=== PATIENT | female | born 1990 | race Caucasian/White ===

== ENCOUNTER 2020-03-09 22:09 | Emergency (ER) | payer MEDICAID, SELFPAY ==
[2020-03-09 22:30] VITALS: BP 150/71; PULSE 97; RESP 18; TEMP 37; O2SAT 98; BMI 39.6
--- NOTE | 2020-03-10 00:31 | ECG_ITS ---
[facility] Test Date: 2020-03-09 Pat Name: Jennifer Vallejo Department: Room: Gender: Female Accounting Director: : 1990 Requested By: Ozzie Day Order Number: [id number] Charissa MD: Charly Villarreal M.D. Measurements Intervals Shannon Rate: 79 P: 51 MA: 170 QRS: 81 QRSD: 91 T: 40 QT: 352 QTc: 405 Interpretive Statements SINUS RHYTHM WITH SINUS ARRHYTHMIA No previous ECG available for comparison Electronically Signed On 03-10-2020 13:51:43 CDT by Charly Villarreal M.D. [id number]
--- NOTE | 2020-03-10 00:31 | XRR_ITS ---
PROCEDURE INFORMATION: Exam: XR Chest, 1 View Exam date and time: 03/10/2020 1:04 AM Age: 30 years old Clinical indication: Chest pain; Type not specified; Additional info: Cp TECHNIQUE: Imaging protocol: XR of the chest Views: 1 view. COMPARISON: No relevant prior studies available. FINDINGS: Lungs: The lungs are clear. Pleural space: Unremarkable. No pleural effusion. No pneumothorax. Heart/Mediastinum: Unremarkable. No cardiomegaly. Bones/joints: Unremarkable. XR/XR chest 1V portable [id number] IMPRESSION: Normal study.
--- NOTE | 2020-03-10 01:03 | W.ED.CHESTPA ---
HPI - Chest Pain General: Chief Complaint: Chest Pain Stated Complaint: cp Time Seen by Provider: 03/10/20 01:03 Source: patient Mode of arrival: ambulatory Limitations: no limitations Review of Systems General: Reports: 10 or more systems reviewed and unremarkable except in HPI and below Physical Exam Const: COMMON NORMALS: no acute distress and patient oriented x3 GENERAL APPEARANCE: cooperative HENMT: COMMON NORMALS: normocephalic, TM's normal bilaterally and Normal external nose present HEAD & SCALP: normal to inspection and normocephalic NOSE: Normal external nose present TYMPANIC MEMBRANE: TM's normal bilaterally MOUTH: Normal oral and palatal mucosa present THROAT: posterior oropharynx normal Eye: GENERAL EYE: appearance normal, both eyes and all related structures Neck/C-Spine: COMMON NORMALS: full ROM Lymph: LYMPHATIC: no lymphadenopathy noted Chest: COMMONS NORMALS: normal inspection of the chest Resp: COMMON NORMALS: normal respiratory effort EFFORT & INSPECTION: Yes able to speak in complete sentences Cardio: COMMON NORMALS: regular rate and regular rhythm RATE: regular rate RHYTHM: regular rhythm GI: COMMON NORMALS: non-tender : COMMON NORMALS: Yes no CVA tenderness BLADDER/KIDNEY EXAM: Yes no CVA tenderness Back/Pelvis: COMMON NORMALS: no CVA tenderness and thoracic and lumbar spine normal to inspection Extremity: COMMON NORMALS: normal to inspection Neuro: COMMON NORMALS: patient oriented x3 and moves all extremities Psych: COMMON NORMALS: mental status grossly normal and cooperative Skin: COMMON NORMALS: no rashes or lesions noted GENERAL SKIN EXAM: no rashes or lesions noted Course Vital Signs: Vital signs: Vital Signs Temperature 98.6 F 03/09/20 22:30 Pulse Rate 76 03/10/20 01:30 Respiratory Rate 16 03/10/20 01:30 Blood Pressure 113/71 03/10/20 01:30 Pulse Oximetry 99 03/10/20 01:30 MDM - Chest Pain MDM Narrative: Medical decision making narrative: Patient comes in today for complaints of mid chest pain with radiation into the left arm. Patient states that for last 2 months she has had problems for chest pain. Patient appears well. Vital signs are normal. Differential diagnosis includes ACS, PE, anxiety, GERD, gallbladder colic. Laboratory values were normal. EKG was normal. D-dimer and troponin were both negative. Reviewed exam with patient recommended follow-up with primary care for further evaluation and treatment. Patient reported understanding agreed to plan. Lab Data: Labs: Lab Results 03/10/20 03/10/20 03/10/20 Range/Units 01:03 01:26 01:26 WBC 10.5 H (4.0-10.0) 10^3/ uL RBC 4.50 (4.1-5.3) 10^6/u L Hgb 13.8 (11.5-15.3) g/dL Hct 41.4 (37.0-47.0) % MCV 92.0 (81-99) fL MCH 30.7 (28.0-34.0) pg MCHC 33.3 (30.0-36.0) g/dL RDW 11.9 L (12.1-15.1) % Plt Count 249 (130-400) 10^3/c mm MPV 11.0 H (7.4-10.4) fL Neut % (Auto) 55.1 % Lymph % (Auto) 36.5 % [place] % (Auto) 6.7 % Eos % (Auto) 1.0 % Baso % (Auto) 0.5 % Neut # (Auto) 5.8 (1.8-7.7) 10^3/u L Lymph # (Auto) 3.8 (0.8-4.8) 10^3/u L [place] # (Auto) 0.7 (0.2-0.9) 10^3/u L Eos # (Auto) 0.1 (0.0-0.8) 10^3/u L Baso # (Auto) 0.1 (0.0-0.1) 10^3/u L Nucleated RBC % (a uto) 0 % Nucleated RBCs # 0.0 /100WBC D-Dimer <= 0.27 (0-0.59) ug/mIFE U Sodium (136-145) mmol/L Potassium (3.5-5.1) mmol/L Chloride (98-107) mmol/L Carbon Dioxide (22-29) mmol/L Anion Gap (5-19) BUN (6-20) mg/dL Creatinine (0.5-0.9) mg/dL GFR Calculation (90-130) mL/min Glucose (65-115) mg/dL Calculated Osmolal ity (285-295) mOsm/k g Calcium (8.5-10.5) mg/dL Total Bilirubin (0.15-1.2) mg/dL AST (0-32) U/L ALT (0-33) U/L Alkaline Phosphata se (35-105) IU/L Troponin T Baselin e (0-10) ng/L Total Protein (6.6-8.7) g/dL Albumin (3.5-5.2) g/dL Globulin (1.3-4.6) g/dL HCG, Qual (Negative) Urine Color Yellow (Yellow) Urine Appearance Hazy A (CLEAR) Urine pH 5 (5-7) Ur Specific Gravit y 1.025 (1.005-1.030) Urine Protein Neg (Negative) Urine Glucose (UA) Norm (Normal) Urine Ketones Negative (Negative) Urine Blood Neg (Negative) Urine Nitrate Negative (Negative) Urine Bilirubin Neg (NEGATIVE) Urine Urobilinogen Norm (Negative) mg/dL Ur Leukocyte Patti ase Negative (Negative) Urine RBC 0-4 H (0-2) /hpf Urine WBC None (0-5) /hpf Ur Squamous Epith Cells 10-15 H (0-5) Amorphous Sediment Not Reportable Urine Bacteria Trace (NONE) 03/10/20 03/10/20 03/10/20 Range/Units 01:26 01:26 01:26 WBC (4.0-10.0) 10^3/ uL RBC (4.1-5.3) 10^6/u L Hgb (11.5-15.3) g/dL Hct (37.0-47.0) % MCV (81-99) fL MCH (28.0-34.0) pg MCHC (30.0-36.0) g/dL RDW (12.1-15.1) % Plt Count (130-400) 10^3/c mm MPV (7.4-10.4) fL Neut % (Auto) % Lymph % (Auto) % [place] % (Auto) % Eos % (Auto) % Baso % (Auto) % Neut # (Auto) (1.8-7.7) 10^3/u L Lymph # (Auto) (0.8-4.8) 10^3/u L [place] # (Auto) (0.2-0.9) 10^3/u L Eos # (Auto) (0.0-0.8) 10^3/u L Baso # (Auto) (0.0-0.1) 10^3/u L Nucleated RBC % (a uto) % Nucleated RBCs # /100WBC D-Dimer (0-0.59) ug/mIFE U Sodium 139 (136-145) mmol/L Potassium 4.1 (3.5-5.1) mmol/L Chloride 102 (98-107) mmol/L Carbon Dioxide 25 (22-29) mmol/L Anion Gap 16.1 (5-19) BUN 17 (6-20) mg/dL Creatinine 0.5 (0.5-0.9) mg/dL GFR Calculation 144.9 H (90-130) mL/min Glucose 98 (65-115) mg/dL Calculated Osmolal ity 284 L (285-295) mOsm/k g Calcium 9.5 (8.5-10.5) mg/dL Total Bilirubin 0.3 (0.15-1.2) mg/dL AST 15 (0-32) U/L ALT 17 (0-33) U/L Alkaline Phosphata se 74 (35-105) IU/L Troponin T Baselin e 6 (0-10) ng/L Total Protein 7.5 (6.6-8.7) g/dL Albumin 4.5 (3.5-5.2) g/dL Globulin 3.0 (1.3-4.6) g/dL HCG, Qual Negative (Negative) Urine Color (Yellow) Urine Appearance (CLEAR) Urine pH (5-7) Ur Specific Gravit y (1.005-1.030) Urine Protein (Negative) Urine Glucose (UA) (Normal) Urine Ketones (Negative) Urine Blood (Negative) Urine Nitrate (Negative) Urine Bilirubin (NEGATIVE) Urine Urobilinogen (Negative) mg/dL Ur Leukocyte Patti ase (Negative) Urine RBC (0-2) /hpf Urine WBC (0-5) /hpf Ur Squamous Epith Cells (0-5) Amorphous Sediment Urine Bacteria (NONE) Discharge Plan Discharge Patient Disposition: Home, Self-Care Clinical Impression: Atypical chest pain Condition: Stable Referrals: Shay Alejandro MD [Primary Care Provider] - Discharge Diet: Usual diet Discharge Activity: Resume usual activity Patient Instructions: Gastroesophageal Reflux Disease (ED) Activity Restrictions/Additional Instructions: Home and rest. Drink plenty of fluids with medications. Activity as tolerated. Follow-up with primary care in one 1 week. Return to the ER for worsening symptoms or new concerns. Coding Level of Care Code ED Baggage Inspector for Niko Fwd Exam Comprehensive
[2020-03-10 01:30] VITALS: BP 113/71; PULSE 76; RESP 16; O2SAT 99
[2020-03-10 01:36] LABS: Basophils # 0.1 10^3/uL (0.0-0.1); Basophils % 0.5 %; Eosinophils # 0.1 10^3/uL (0.0-0.8); Hematocrit 41.4 % (37.0-47.0); Hemoglobin 13.8 g/dL (11.5-15.3); Lymphocytes # 3.8 10^3/uL (0.8-4.8); Lymphocytes % 36.5 %; Mean Corpuscular HGB Conc 33.3 g/dL (30.0-36.0); Mean Corpuscular Hemoglobin 30.7 pg (28.0-34.0); Monocytes # 0.7 10^3/uL (0.2-0.9); Monocytes % 6.7 %; Neutrophils # 5.8 10^3/uL (1.8-7.7); Neutrophils % 55.1 %; Nucleated Red Blood Cells % 0 %; Platelet Count 249 10^3/cmm (130-400); Red Cell Distribution Width 11.9 % (12.1-15.1); White Blood Count 10.5 10^3/uL (4.0-10.0)
[2020-03-10 01:44] LABS: D Dimer <= 0.27 ug/mIFEU (0-0.59)
[2020-03-10 01:49] LABS: Add Urine Microscopic? YES; Bilirubin Urine Neg (NEGATIVE); Blood Urine Neg (Negative); Glucose Urine UA Norm (Normal); Ketones Urine Negative (Negative); Leukocyte Esterase Urine Negative (Negative); Nitrate Urine Negative (Negative); Protein Urine Neg (Negative); Specific Gravity, Urine 1.025 (1.005-1.030); Urine Appearance Hazy (CLEAR); Urine Color Yellow (Yellow); Urobilinogen Urine Norm (Negative); pH Urine 5 (5-7)
[2020-03-10 01:49] LABS: Alanine Aminotransferase 17 U/L (0-33); Albumin Level 4.5 g/dL (3.5-5.2); Alkaline Phosphatase 74 IU/L (35-105); Anion Gap 16.1 (5-19); Aspartate Amino Transferase 15 U/L (0-32); Blood Urea Nitrogen 17 mg/dL (6-20); Calcium 9.5 mg/dL (8.5-10.5); Carbon Dioxide 25 mmol/L (22-29); Chloride 102 mmol/L (98-107); Glomerular Filtration Rate 144.9 mL/min (90-130); Glucose 98 mg/dL (65-115); Osmolality Calculated 284 mOsm/kg (285-295); Potassium 4.1 mmol/L (3.5-5.1); Sodium 139 mmol/L (136-145); Total Bilirubin 0.3 mg/dL (0.15-1.2); Total Protein 7.5 g/dL (6.6-8.7)
[2020-03-10 01:50] LABS: HCG, Serum Qual Negative (Negative)
[2020-03-10 01:53] LABS: Troponin(5th) Baseline 6 ng/L (0-10)
[2020-03-10 01:55] LABS: Add Urine Culture? No; Bacteria Urine TRACE; RBC Urine 0-4 /hpf (0-2)
[2020-03-10] MEDS: lidocaine 2% viscous 15 ML, aluminum-mag hydrox-simethicon 30 ML, sucralfate oral liq 1 GM PO (02:10)
[2020-03-10 02:38] VITALS: PULSE 74; RESP 18; O2SAT 99
== END 2020-03-10 02:39 | disposition home or self-care (01) ==
PROVIDERS: Emergency Medicine; Emergency Provider Nurse Practitioner Family; PCP Family Medicine
DX: R07.9 Chest pain, unspecified (principal)
CPT/HCPCS: 12345; 71045; 80053; 81001; 81003; 84484; 84703; 85025; 85378; 93005; 99283; 99284

== ENCOUNTER 2020-08-24 13:21 | Emergency (ER) | payer MEDICAID, SELFPAY ==
[2020-08-24 13:47] VITALS: BP 128/79; PULSE 79; RESP 18; TEMP 37.1; O2SAT 98; BMI 38.4
--- NOTE | 2020-08-24 14:12 | W.ED.EXTPRO ---
HPI - Extremity Problem General: Chief complaint: Extremity Problem,Nontraumatic Stated complaint: Rt arm pain Time Seen by Provider: 08/24/20 14:05 History of Present Illness: HPI Narrative: Patient is a 30-year-old female comes to the ED with right wrist hand and pain. Patient denies any injury but does have a history of carpal tunnel on right wrist. Patient says last 2 days she has had increased pain and numbness in fingers and right hand. She says the pain shoots up from the hand into the elbow. Pain is rated a 7 out of 10. Patient says she is currently not and has had her tubes tied. Associated symptoms: Deny chest pain, fever(s) or rash Review of Systems Const: Denies: fever(s), chills or fatigue Eyes: Denies: change in vision or eye discomfort ENMT: Denies: throat pain, odynophagia, nasal discharge or nasal congestion Card: Denies: chest pain, palpitations, edema, swelling of feet/ankles, dyspnea on exertion or orthopnea Resp: Denies: dyspnea, productive cough or non-productive cough GI: Denies: abdominal pain, nausea, vomiting, diarrhea, constipation or hematochezia : Denies: flank pain, dysuria or hematuria Musc: Reports: extremity pain (Right wrist); Denies: neck pain, back pain or extremity swelling Skin/Breast: Denies: rash or new lesions Neuro: Denies: headache(s), numbness in extremities or weakness in extremities Physical Exam Const: COMMON NORMALS: no acute distress and patient oriented x3 GENERAL APPEARANCE: cooperative and comfortable HENMT: COMMON NORMALS: normocephalic HEAD & SCALP: normocephalic MOUTH: Normal oral and palatal mucosa present THROAT: posterior oropharynx normal and uvula midline Neck/C-Spine: COMMON NORMALS: supple GENERAL: Yes normal visual inspection Resp: COMMON NORMALS: normal respiratory effort, No retractions, No use of accessory muscles and clear to auscultation bilaterally AUSCULTATION: clear to auscultation bilaterally Cardio: COMMON NORMALS: regular rate, regular rhythm, S1 normal heart sound present, S2 normal heart sound present, No gallops present (Cardio), No clicks present (Cardio), No murmurs present (Cardio) and Peripheral pulses 2+ throughout RATE: regular rate RHYTHM: regular rhythm HEART SOUNDS: S1 normal heart sound present and S2 normal heart sound present PERIPHERAL PULSES: Peripheral pulses 2+ throughout GI: COMMON NORMALS: Normal to inspection, nondistended, normoactive bowel sounds present, Soft to palpation, non-tender and no masses PALPATION: Yes Soft to palpation : COMMON NORMALS: Yes no CVA tenderness BLADDER/KIDNEY EXAM: Yes no CVA tenderness Back/Pelvis: COMMON NORMALS: no CVA tenderness Extremity: RIGHT UPPER EXTREMITY: Yes wrist Right wrist: Yes inspection (Mild swelling in right hand.), Yes ROM (Full range of motion), Yes neurovascular exam (Intact) and Yes special tests Right wrist special tests: Tinel's test: Positive and Phalen's test: Positive Neuro: COMMON NORMALS: patient oriented x3 and moves all extremities Skin: GENERAL SKIN EXAM: dry skin Course Vital Signs: Vital signs: Vital Signs Temperature 98.7 F 08/24/20 13:47 Pulse Rate 79 08/24/20 13:47 Respiratory Rate 18 08/24/20 13:47 Blood Pressure 128/79 08/24/20 13:47 Pulse Oximetry 98 08/24/20 13:47 MDM - Extremity (Nontraumatic) MDM Narrative: Medical decision making narrative: Patient is a 30-year-old female comes to the ED with right wrist pain. She has a history of carpal tunnel in her right wrist. Denies any injury or trauma to cause pain. She says that the pain shoots into the hand and up into the elbow. Physical exam showed a positive Phalen's and Tinel's test. Patient will be continued a dose of Toradol and Solu-Medrol while here in the ED. She was then discharged on some ibuprofen and Medrol Dosepak. Follow-up with PCP in 7 to 10 days. Return to ED precautions given. Patient understood and agreed with plan. Discharge Plan Discharge Patient Disposition: Home Clinical Impression: Carpal tunnel syndrome of right wrist Condition: Stable Prescriptions: New ibuprofen 800 mg tablet 800 mg PO Q8H PRN (Reason: pain) Qty: 30 RF: 0 Medrol (Manny) 4 mg tablets,dose pack See Rx Instructions .ROUTE .COMPLEX Qty: 21 RF: 0 Discharge Orders: Discharge ED (Routine); Ordered 08/24/20 Ordered By: Shay Colby Referrals: Shay Alejandro MD [Primary Care Provider] - Discharge Diet: Regular Discharge Activity: Limit activity as instructed Patient Instructions: Carpal Tunnel Syndrome Exercises (GEN), Carpal Tunnel Syndrome (ED) Activity Restrictions/Additional Instructions: Follow-up with medical provider as directed. Case management should be contacting you in the next several days set up an appoint with the PCP. Rest and ice right breast. Take medications as prescribed. Return to the ER or your medical provider if condition worsens. Please read and understand discharge instructions. If any questions, please ask. Coding Level of Care Code ED Gas Well Drilling Manager for Chg Fwd Exam Comprehensive
[2020-08-24] MEDS: ketorolac 60 mg/2 mL INJ IM (14:23)
--- NOTE | 2020-08-27 10:46 | DCPLANNER ---
wireless development manager had message to speak with patient about getting established with a primary care physician. wireless development manager called [phone] several times, unable to speak with patient at this time, phone number was a busy signal, unable to leave a voicemail for patient.
== END 2020-08-24 14:28 | disposition home or self-care (01) ==
PROVIDERS: Emergency Provider Physician Assistant; PCP Family Medicine
DX: G56.01 Carpal tunnel syndrome, right upper limb (principal)
CPT/HCPCS: 12345; 96372; 99281; 99283; J1885; J2930

== ENCOUNTER 2020-10-10 09:22 | Emergency (ER) | payer BC, MEDICAID, SELFPAY ==
[2020-10-10 09:43] VITALS: BMI 48.4
--- NOTE | 2020-10-10 09:46 | XR_ITS ---
WS: [id number] Right foot, 3 views, 10/10/2020 Clinical Data: pain Comparison: None. Findings: There is an oblique fracture of the right fifth proximal phalanx of the foot. No other fractures or d islocations are seen. The soft tissues are normal. The tarsals and metatarsals are unremarkable. XR/XR foot RT min 3V* [id number] Impression: Fracture of right fifth proximal phalanx of the foot.
[2020-10-10 09:48] VITALS: BP 139/73; PULSE 111; RESP 14; TEMP 36.8; O2SAT 98
--- NOTE | 2020-10-10 09:51 | W.ED.LOWEXIN ---
HPI - Extremity Injury (Lower) General: Chief Complaint: Trauma Stated Complaint: Rt foot pain Time Seen by Provider: 10/10/20 09:46 Source: patient Mode of arrival: ambulatory Limitations: no limitations History of Present Illness: HPI Narrative: Patient is a 30-year-old female who presents to ED today for evaluation of a right foot injury. Patient tells me yesterday she was trying to get a lawn chair out from underneath the couch when the lawn chair got hung up on her right fifth toe. She complains of pain at rest but more so with ambulation. She is ambulatory without assistance here. No lacerations. complaint: foot injury Onset (ago): day(s) (yesterday) Place: home Severity: moderate Relieving factors: nothing Exacerbating factors: weight bearing, movement and palpation Other symptoms: none Review of Systems Musc: Reports: extremity pain (R foot/5th toe pain) and extremity swelling Skin/Breast: Reports: other (no lacerations/abrasions) Neuro: Denies: numbness in extremities, sensory changes or difficulty walking Physical Exam Const: COMMON NORMALS: no acute distress, average body habitus, patient oriented x3, no limitations, healthy appearing, alert and well nourished Extremity: GENERAL: Yes normal exam except as noted OTHER: TTP throughout 5th digit and distal metatarsal; mild swelling and ecchymosis noted; no breaks in skin; no deformities noted; sensory intact; normal cap refill and DP/PT pulses Neuro: COMMON NORMALS: patient oriented x3, moves all extremities, no focal motor deficits, no sensory deficits noted and gait normal SENSORIUM/ORIENTATION: Yes alert Skin: COMMON NORMALS: no rashes or lesions noted GENERAL SKIN EXAM: no rashes or lesions noted Course Vital Signs: Vital signs: Vital Signs Temperature 98.3 F 10/10/20 09:48 Pulse Rate 118 H 10/10/20 10:40 Respiratory Rate 16 10/10/20 10:40 Blood Pressure 133/82 10/10/20 10:40 Pulse Oximetry 97 10/10/20 10:40 MDM - Extremity Injury (Lower) MDM Narrative: Medical decision making narrative: Pt with fx of R 5th proximal phalanx. Will place in hard soled shoe and have her follow up with podiatry. Imaging Data^: XR R foot: Radiologist's impression: [address] [address] XRay Report Signed Patient: Jennifer Vallejo Unit #: [id number] : 1990 Age/Sex: 30 / F ADM Date: 10/10/20 Loc: ER Room/Bed: Attending Dr: Ordering Provider/Ordering MD: Samra Stone Date of Service: 10/10/20 Procedure(s): XR foot RT min 3V* 55085 Accession Number(s): [id number] Report Number: [id number] WS: [id number] Right foot, 3 views, 10/10/2020 Clinical Data: pain Comparison: None. Findings: There is an oblique fracture of the right fifth proximal phalanx of the foot. No other fractures or dislocations are seen. The soft tissues are normal. The tarsals and metatarsals are unremarkable. XR/XR foot RT min 3V* [id number] Impression: Fracture of right fifth proximal phalanx of the foot. Dictated By: Jacque Guillory MD Signed By: Jacque Guillory MD Signed Date/Time: 10/10/20 1029 DD/ 1027 Discharge Plan Discharge Patient Disposition: Home Clinical Impression: Closed fracture of fifth toe of right foot Qualifiers: Encounter type: initial encounter Qualified Code(s): S92.501A - Displaced unspecified fracture of right lesser toe(s), initial encounter for closed fracture Condition: Stable Discharge Orders: Discharge ED (Routine); Ordered 10/10/20 Ordered By: Samra Stone Referrals: Pedro Luis Carroll DPM [Physician] - Shay Alejandro MD [Primary Care Provider] - Patient Instructions: Toe Fracture (ED) Activity Restrictions/Additional Instructions: As discussed to stay in your hard soled surgical shoe as much as possible. If you have to wear alternative footwear-make sure it also has a hard sole. Case management should contact you shortly to set you up with your podiatry appointment. Coding Level of Care Code ED Auto Care Center Manager for Chg Fwd Exam Expanded Problem Focused
[2020-10-10 10:40] VITALS: BP 133/82; PULSE 118; RESP 16; O2SAT 97
--- NOTE | 2020-10-10 12:17 | DCPLANNER ---
store sales manager had message to schedule a follow up appointment for patient with ortho. store sales manager called the ortho clinic, spoke with Denice, gave clinic patients information. store sales manager was told that patients information would be printed and reviewed. Clinic will call patient with appointment information.
--- NOTE | 2020-10-17 10:46 | DCPLANNER ---
water project manager called the ortho clinic, spoke with Denice, to confirm that a follow up appointment had been scheduled for patient. water project manager was told that the clinic had tried to call patient, unable to reach patient and unable to leave a voicemail.
== END 2020-10-10 10:42 | disposition home or self-care (01) ==
PROVIDERS: Emergency Provider Physician Assistant; PCP Family Medicine
DX: S92.501A Displaced unspecified fracture of right lesser toe(s), initial encounter for closed fracture (principal); W22.8XXA Striking against or struck by other objects, initial encounter
CPT/HCPCS: 12345; 73630; 99282

== ENCOUNTER 2020-12-22 14:30 | Emergency (ER) | payer BC, MEDICAID, SELFPAY ==
[2020-12-22 14:51] VITALS: BP 145/71; PULSE 92; RESP 18; TEMP 36.9; O2SAT 96; BMI 34.2
[2020-12-22 14:58] VITALS: BP 118/66; PULSE 92; RESP 18; O2SAT 96
[2020-12-22 15:01] VITALS: PULSE 56
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
[2020-12-22] MEDS: ketorolac 30 mg/mL INJ 60 MG IM (15:34)
[2020-12-22 15:44] VITALS: BP 118/66; PULSE 82; RESP 17; O2SAT 97
== END 2020-12-22 15:44 | disposition home or self-care (01) ==
PROVIDERS: Emergency Provider Family Medicine
DX: S83.91XA Sprain of unspecified site of right knee, initial encounter (principal); S09.8XXA Other specified injuries of head, initial encounter; V00.148A Other scooter (nonmotorized) accident, initial encounter
CPT/HCPCS: 70450; 73562; 96372; 99283; J1885

== ENCOUNTER 2021-04-04 21:54 | Emergency (ER) | payer BC, MEDICAID, SELFPAY ==
--- NOTE | 2021-04-04 21:57 | XRR_ITS ---
PROCEDURE INFORMATION: Exam: XR Chest Exam date and time: 04/04/2021 9:57 PM Age: 31 years old Clinical indication: Pain; Left-sided; Patient HX: Left sided cp radiating down left arm/numb fingers TECHNIQUE: Imaging protocol: XR of the chest. Views: 1 view. COMPARISON: 1. CR XR chest 1V portable [id number] 2020-03-10 00:[address] abdomen pelvis w con* [id number] 2018-10-05 18:19 FINDINGS: Lungs: Unremarkable. No consolidation. Pleural spaces: Unremarkable. No pleural effusion. No pneumothorax. Heart/Mediastinum: Unremarkable. No cardiomegaly. Bones/joints: Unremarkable. XR/XR chest 1V portable [id number] IMPRESSION: No acute findings.
--- NOTE | 2021-04-04 21:58 | ECG_ITS ---
[facility] Test Date: 2021-04-04 Pat Name: Jennifer Vallejo Department: Room: Gender: Female [employer]: : 1990 Requested By: Shay Colby Order Number: [id number] Charissa MD: JE SPENCER Measurements Intervals [place] Rate: 90 P: 60 LA: 155 QRS: 72 QRSD: 96 T: 40 QT: 338 QTc: 414 Interpretive Statements SINUS RHYTHM Compared to ECG 03/09/2020 22:30:01 Sinus arrhythmia no longer present Electronically Signed On 04-06-2021 20:30:07 CDT by JE SPENCER [email or web address]
[2021-04-04 22:04] VITALS: BP 127/77; PULSE 102; RESP 18; TEMP 36.4; O2SAT 98; BMI 38.4
[2021-04-04 22:15] VITALS: PULSE 81; RESP 18; O2SAT 99
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
--- NOTE | 2021-04-04 22:18 | CTR_ITS ---
PROCEDURE INFORMATION: Exam: CT Head Without Contrast Exam date and time: 04/04/2021 10:18 PM Age: 31 years old Clinical indication: Syncope and collapse; Additional info: Syncopal episode TECHNIQUE: Imaging protocol: Computed tomography of the head without contrast. Radiation optimization: All CT scans at this facility use at least one of these dose optimization techniques: automated exposure control; mA and/or kV adjustment per patient size (includes targeted exams where dose is matched to clinical indication); or iterative reconstruction. COMPARISON: CT head wo con* [id number] 2020-12-22 15:36 RADIATION DOSE METRICS: Total DLP (mGy-cm): 848.27 FINDINGS: Brain: 4 mm cerebellar ectopia. No midline shift, mass, fluid collection, or evidence of acute hemorrhage. Cerebral ventricles: No ventriculomegaly. Paranasal sinuses: Visualized sinuses are unremarkable. No fluid levels. Mastoid air cells: Visualized mastoid air cells are well aerated. Bones/joints: Unremarkable. No acute fracture. Soft tissues: Unremarkable. CT/CT head wo con* [id number] IMPRESSION: No acute intracranial abnormality. Radiation Dose CTDIVOL = (mGy): DLP = 848.27 (mGy-cm)
[2021-04-04 22:45] LABS: Basophils # 0.1 10^3/uL (0.0-0.1); Basophils % 0.4 %; Eosinophils # 0.2 10^3/uL (0.0-0.8); Eosinophils % 1.2 %; Hematocrit 42.3 % (37.0-47.0); Hemoglobin 13.9 g/dL (11.5-15.3); Lymphocytes # 2.2 10^3/uL (0.8-4.8); Lymphocytes % 16.4 %; Mean Corpuscular HGB Conc 32.9 g/dL (30.0-36.0); Mean Corpuscular Hemoglobin 30.5 pg (28.0-34.0); Mean Platelet Volume 10.6 fL (7.4-10.4); Monocytes # 0.9 10^3/uL (0.2-0.9); Monocytes % 6.5 %; Neutrophils # 10.03 10^3/uL (1.8-7.7); Neutrophils % 75.1 %; Nucleated Red Blood Cells % 0 %; Platelet Count 237 10^3/cmm (130-400); Red Blood Count 4.55 10^6/uL (4.1-5.3); Red Cell Distribution Width 12.1 % (12.1-15.1); White Blood Count 13.4 10^3/uL (4.0-10.0)
[2021-04-04] MEDS: LORazepam 2 mg/mL INJ 1 mL 1 MG IVP (22:46)
[2021-04-04 22:54] LABS: HCG, Serum Qual Negative (Negative)
[2021-04-04 23:01] LABS: Troponin(5th) Baseline 6 ng/L (0-10)
[2021-04-04 23:03] LABS: Alanine Aminotransferase 12 U/L (0-33); Albumin Level 4.1 g/dL (3.5-5.2); Alkaline Phosphatase 83 IU/L (35-105); Anion Gap 13.3 (5-19); Aspartate Amino Transferase 11 U/L (0-32); Blood Urea Nitrogen 14 mg/dL (6-20); Calcium 8.4 mg/dL (8.5-10.5); Carbon Dioxide 24 mmol/L (22-29); Chloride 105 mmol/L (98-107); Globulin 1.9 g/dL (1.3-4.6); Glucose 96 mg/dL (65-115); Osmolality Calculated 286 mOsm/kg (285-295); Potassium 4.3 mmol/L (3.5-5.1); Sodium 138 mmol/L (136-145); Total Bilirubin 0.3 mg/dL (0.15-1.2)
[2021-04-05] MEDS: sodium chloride 0.9% 1,000 ML 999 ML IV (00:30)
[2021-04-05 01:49] VITALS: BP 138/75; PULSE 78; RESP 16; TEMP 36.9; O2SAT 98
== END 2021-04-05 01:51 | disposition home or self-care (01) ==
PROVIDERS: Emergency Provider Physician Assistant
DX: R07.89 Other chest pain (principal); F41.9 Anxiety disorder, unspecified
CPT/HCPCS: 70450; 71045; 80053; 84484; 84703; 85025; 93005; 96361; 96374; 99284; J2060; J7030

== ENCOUNTER 2021-07-27 09:12 | Emergency (ER) | payer BC, MEDICAID, SELFPAY ==
[2021-07-27 10:05] VITALS: BP 125/91; PULSE 119; RESP 17; TEMP 36.3; O2SAT 97; BMI 42.0
--- NOTE | 2021-07-27 10:20 | ED_ITS ---
HPI - Ear Problem General: Chief complaint: Ear Stated complaint: Ear Pain Time Seen by Provider: 07/27/21 09:57 History of Present Illness: HPI Narrative: Bilateral ear pain for the last couple 3 days. Patient is also had sinus drainage and congestion. Denies sore throat fever chills denies any other problems. MD Complaint: ear pain Location: bilateral Duration: constant Severity: moderate Relieving factors: nothing Exacerbating factors: nothing Associated symptoms: Reports no associated symptoms and ear or mastoid pain; Denies fever(s) or headache(s) Review of Systems Const: Denies: fever(s), chills or body aches Eyes: Denies: change in vision or blurry vision ENMT: Reports: ear or mastoid pain and nasal congestion; Denies: throat pain Card: Denies: chest pain or dyspnea on exertion Resp: Denies: dyspnea, productive cough or non-productive cough GI: Denies: abdominal pain, nausea or vomiting Musc: Denies: extremity pain Skin/Breast: Denies: rash Neuro: Denies: headache(s) Psych: Denies: anxiety or depression Vahid/Lymph: Denies: easy bruising [facility] ED Female Reproductive History: Date of last menstrual period: 03/21/21 Physical Exam Const: COMMON NORMALS: no acute distress, average body habitus and patient oriented x3 HENMT: COMMON NORMALS: normocephalic HEAD & SCALP: normal to inspection and normocephalic FACE & SINUS: normal facial exam TYMPANIC MEMBRANE: TM abnormal TM laterality: bilateral bulging, erythematous and with loss of landmarks Eye: COMMON NORMALS: conjunctivae normal GENERAL EYE: appearance normal, both eyes and all related structures CONJUNCTIVA: Yes conjunctivae normal Neck/C-Spine: COMMON NORMALS: no JVD Chest: COMMONS NORMALS: normal inspection of the chest Resp: COMMON NORMALS: normal respiratory effort and clear to auscultation bilaterally AUSCULTATION: clear to auscultation bilaterally Cardio: COMMON NORMALS: no JVD and regular rhythm RATE: tachycardic RHYTHM: regular rhythm GI: COMMON NORMALS: Normal to inspection, nondistended, normoactive bowel sounds present Extremity: COMMON NORMALS: normal to inspection and full ROM Neuro: COMMON NORMALS: patient oriented x3 Course Vital Signs: Vital signs: Vital Signs Temperature 97.4 F L 07/27/21 10:05 Pulse Rate 119 H 07/27/21 10:05 Respiratory Rate 17 07/27/21 10:05 Blood Pressure 125/91 07/27/21 10:05 Pulse Oximetry 97 07/27/21 10:05 Discharge Plan Discharge Patient Disposition: Home Clinical Impression: Otitis media Qualifiers: Otitis media type: other nonsuppurative Chronicity: acute Laterality: bilateral Recurrence: non-recurrent Qualified Code(s): H65.193 - Other acute nonsuppurative otitis media, bilateral Condition: Stable Prescriptions: New prednisone 20 mg tablet 20 mg PO DAILY Qty: 7 RF: 0 Augmentin 875-125 mg tablet 1 tab PO BID Qty: 14 RF: 0 No Action diclofenac sodium 75 mg tablet,delayed release (DR/EC) 75 mg PO Q12H PRN (Reason: pain) Qty: 20 RF: 0 Discharge Orders: Discharge ED (Routine); Ordered 07/27/21 Ordered By: Rashaad Cisse Discharge Diet: Usual diet Discharge Activity: Increase activity as tolerated Patient Instructions: Otitis Media - Adult Activity Restrictions/Additional Instructions: Follow-up with medical provider as directed. Take medications as prescribed. Return to the ER or your medical provider if condition worsens. Please read and understand discharge instructions. If any questions ask please. Coding Level of Care Code ED Supervisory It Specialist for Niko Brown Exam Comprehensive
== END 2021-07-27 10:39 | disposition home or self-care (01) ==
PROVIDERS: Emergency Provider Nurse Practitioner Family
DX: H65.193 Other acute nonsuppurative otitis media, bilateral (principal)
CPT/HCPCS: 99281

== ENCOUNTER 2021-10-20 15:05 | Emergency (ER) | payer BC, MEDICAID, SELFPAY ==
[2021-10-20 15:55] VITALS: BP 125/83; PULSE 95; RESP 16; TEMP 36.8; O2SAT 98
--- NOTE | 2021-10-20 16:10 | ED_ITS ---
HPI - Ear Problem General: Chief complaint: Ear Stated complaint: PT thinks double ear infection Time Seen by Provider: 10/20/21 15:25 Source: patient Mode of arrival: ambulatory Limitations: no limitations History of Present Illness: Patient is a 31-year-old female presents to ED today with complaint of bilateral ear pain over the past 1 to 2 days. She has not had any drainage. No fevers. No other URI symptoms. She does not complain of tinnitus or hearing loss. MD Complaint: ear pain Location: bilateral Duration: constant Severity: moderate Relieving factors: nothing Exacerbating factors: nothing Discharge from ear: no Associated symptoms: Reports no associated symptoms and ear or mastoid pain; Denies fever(s), headache(s), neck pain or tinnitus Treatment prior to arrival: none Review of Systems Const: Denies: fever(s), chills, body aches, fatigue or malaise Eyes: Denies: change in vision, blurry vision, photophobia, eye discomfort or eye discharge ENMT: Reports: ear or mastoid pain; Denies: throat pain, odynophagia, ear discharge, change in hearing, tinnitus, disequilibrium, nasal discharge, nasal congestion, epistaxis, post nasal drip or sinus pain Resp: Denies: chest congestion GI: Denies: nausea or vomiting Musc: Denies: neck pain Skin/Breast: Denies: rash Neuro: Denies: headache(s) [facility] ED Female Reproductive History: Date of last menstrual period: 03/21/21 Physical Exam Const: COMMON NORMALS: no acute distress and no limitations GENERAL APPEARANCE: cooperative NUTRITIONAL APPEARANCE: obese HENMT: COMMON NORMALS: normocephalic, atraumatic, hearing grossly normal bilaterally, external ears normal, EAC's normal and Normal external nose present HEAD & SCALP: normal to inspection, normocephalic and atraumatic FACE & SINUS: normal facial exam NOSE: Normal external nose present EXTERNAL EAR: Yes external ears normal EXTERNAL AUDITORY CANAL: EAC's normal TYMPANIC MEMBRANE: TM abnormal TM laterality: bilateral with fluid behind the TM and retracted (L) Neck/C-Spine: COMMON NORMALS: no lymphadenopathy Neuro: COMMON NORMALS: CN's II-XII intact bilaterally Course Vital Signs: Vital signs: Vital Signs Temperature 98.2 F 10/20/21 15:55 Pulse Rate 95 10/20/21 15:55 Respiratory Rate 16 02/13/22 15:55 Blood Pressure 125/83 10/20/21 15:55 Pulse Oximetry 98 10/20/21 15:55 MDM - Ear Medical Decision Making Patient with bilateral serous otitis media. Recommend conservative therapies at this time. Discharge Plan Discharge Patient Disposition: Home Clinical Impression: Acute serous otitis media of both ears Qualifiers: Recurrence: non-recurrent Qualified Code(s): H65.03 - Acute serous otitis media, bilateral Condition: Stable Prescriptions: No Action diclofenac sodium 75 mg tablet,delayed release (DR/EC) 75 mg PO Q12H PRN (Reason: pain) Qty: 20 0RF prednisone 20 mg tablet 20 mg PO DAILY Qty: 7 0RF Augmentin 875-125 mg tablet 1 tab PO BID Qty: 14 0RF Discharge Orders: Discharge ED (Routine); Ordered 10/20/21 Ordered By: Samra Stone Patient Instructions: Fluid In The Ear (Serous Otitis Media) (ED) Coding Level of Care Code ED Senior Network Security Engineer for Chg Stephanie
--- NOTE | 2021-10-20 16:22 | PC.NURSE ---
VERBALIZED UNDERSTANDING OF ALL INSTRUCTIONS, PATIENT AMBULATED FROM THE ED
== END 2021-10-20 16:22 | disposition home or self-care (01) ==
PROVIDERS: Emergency Provider Physician Assistant
DX: H65.03 Acute serous otitis media, bilateral (principal)
CPT/HCPCS: 99281

== ENCOUNTER 2022-04-28 17:33 | Emergency (ER) | payer BC, MEDICAID, SELFPAY ==
[2022-04-28 17:38] VITALS: BP 143/62; PULSE 130; RESP 16; TEMP 36.8; O2SAT 96; BMI 40.2
--- NOTE | 2022-04-28 17:45 | ECG_ITS ---
[facility] Test Date: 2022-04-28 Pat Name: Jennifer Vallejo Department: Room: Gender: Female Compliance Officer: : 1990 Requested By: Tray Stark Order Number: [id number] Charissa MD: Jing Sorenson M.D. Measurements Intervals [place] Rate: 121 P: 65 ND: 124 QRS: 83 QRSD: 87 T: 46 QT: 309 QTc: 439 Interpretive Statements SINUS TACHYCARDIA ABNORMAL RHYTHM ECG Compared to ECG 04/04/2021 22:09:15 Sinus rhythm no longer present Electronically Signed On 04-29-2022 7:29:33 CDT by Jing Sorenson M.D. [id number]
--- NOTE | 2022-04-28 18:00 | W.ED.CHESTPA ---
HPI - Chest Pain General: Chief Complaint: Chest Pain Stated Complaint: chest pain Time Seen by Provider: 04/28/22 18:00 [facility] ED Female Reproductive History: Date of last menstrual period: 03/21/21 Course Vital Signs: Vital signs: Vital Signs Temperature 98.2 F 04/28/22 17:38 Pulse Rate 130 H 04/28/22 17:38 Respiratory Rate 16 04/28/22 17:38 Blood Pressure 143/62 04/28/22 17:38 Pulse Oximetry 96 04/28/22 17:38 Oxygen Delivery Wy thod 04/28/22 17:38 Discharge Plan Discharge Condition: Stable Prescriptions: No Action diclofenac sodium 75 mg tablet,delayed release (DR/EC) 75 mg PO Q12H PRN (Reason: pain) Qty: 20 0RF prednisone 20 mg tablet 20 mg PO DAILY Qty: 7 0RF Augmentin 875-125 mg tablet 1 tab PO BID Qty: 14 0RF Coding Level of Care Code ED Coil Builder for Niko Brown
--- NOTE | 2022-04-28 18:02 | ECG_ITS ---
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
--- NOTE | 2022-04-28 18:02 | XRR_ITS ---
PROCEDURE INFORMATION: Exam: XR Chest Exam date and time: 04/28/2022 6:09 PM Age: 32 years old Clinical indication: Angina; Additional info: Cp TECHNIQUE: Imaging protocol: Radiologic exam of the chest. Views: 1 view. COMPARISON: CR XR chest 1V portable [id number] 04/04/2021 10:11 PM FINDINGS: Lungs: Unremarkable. No consolidation. Pleural spaces: Unremarkable. No pleural effusion. No pneumothorax. Heart/Mediastinum: Unremarkable. No cardiomegaly. Bones/joints: Unremarkable. XR/XR chest 1V portable [id number] IMPRESSION: No acute findings.
--- NOTE | 2022-04-28 18:04 | ED_ITS ---
HPI - Chest Pain General: Chief Complaint: Chest Pain Stated Complaint: chest pain Time Seen by Provider: 04/28/22 18:00 Source: patient Mode of arrival: ambulatory Limitations: no limitations History of Present Illness: 32-year-old female states she been having a sharp chest pain since this morning states it is left-sided seems to be worse with palpation denies any improving factors. States pain is sharp rates it a 9 out of 10 denies any radiation of her pain she denies any fever she has had some slight shortness of breath denies any nausea or vomiting. Associated symptoms: Deny abdominal pain, dyspnea, fever(s), nausea or vomiting Review of Systems Const: Denies: fever(s), chills, body aches or change in appetite Eyes: Denies: blurry vision or eye discomfort ENMT: Denies: throat pain or dental pain Card: Reports: chest pain Resp: Denies: dyspnea GI: Denies: abdominal pain, nausea, vomiting or diarrhea : Denies: dysuria Musc: Denies: neck pain or back pain Skin/Breast: Denies: rash Neuro: Denies: headache(s) Psych: Denies: depression Vahid/Lymph: Denies: easy bruising All/Imm: Denies: urticaria PFSH ED PFSH: Medical History (Updated 04/28/22 @ 19:17 by Tray Stark MD) No pertinent past medical history Social History (Updated 04/28/22 @ 18:04 by Tray Stark MD) Substance/Drug Use: unknown Female Reproductive History: Date of last menstrual period: 03/21/21 Course Vital Signs: Vital signs: Vital Signs Temperature 98.2 F 04/28/22 17:38 Pulse Rate 106 H 04/28/22 18:13 Respiratory Rate 26 H 04/28/22 19:17 Blood Pressure 131/85 04/28/22 18:13 Pulse Oximetry 96 04/28/22 18:13 Oxygen Delivery Me thod 04/28/22 18:13 MDM - Chest Pain Medical Decision Making Patient presents for chest pains atypical in nature D-dimer and troponin are both normal. EKG here is normal she feels much improved pain is likely muscular in nature we will place her on Naprosyn she is stable for discharge she is to follow-up with her PCP and return if worsening. Lab Data : 04/28/22 18:30 04/28/22 18: Radiology Impressions Chest X-Ray 04/28/22 18: IMPRESSION: No acute findings. Laboratory Results WBC 4.1 10^3/uL (4.0-10.0) 04/28/22 18: RBC 4.75 10^6/uL (4.1-5.3) 04/28/22: Hgb 14.6 g/dL (11.5-15.3) 04/28/22: Hct 43.3 % (37.0-47.0) 04/28/22 MCV 91.2 fl (81-99) 04/28/22 MCH 30.7 pg (28.0-34.0) 04/28/22 MCHC 33.7 g/dL (30.0-36.0) 04/28/22 RDW 11.9 % (12.1-15.1) L 04/28/22 Plt Count 171 10^3/cmm (130-400) 04/28/22 MPV 11.1 fL (7.4-10.4) H 04/28/22: Neut % (Auto) 64.4 % 04/28/22: Lymph % (Auto) 25.1 % 04/28/22: [place] % (Auto) 7.8 % 04/28/22 Eos % (Auto) 1.2 % 04/28/22 Baso % (Auto) 1.0 % 04/28/22 Neut # (Auto) 2.65 10^3/uL (1.8-7.7) 04/28/22: Lymph # (Auto) 1.0 10^3/uL (0.8-4.8) 04/28/22: [place] # (Auto) 0.3 10^3/uL (0.2-0.9) 04/28/22 18 Eos # (Auto) 0.1 10^3/uL (0.0-0.8) 04/28/22 18: Baso # (Auto) 0.0 10^3/uL (0.0-0.1) 04/28/22 18:30 Nucleated RBC % (auto) 0 % 04/28/22 18:30 Nucleated RBCs # 0.0 /100WBC 04/28/22 18:30 D-Dimer 0.45 ug/mIFEU (0-0.59) 04/28/22 18:30 Sodium 139 mmol/L (136-145) 04/28/22 18:30 Potassium 3.6 mmol/L (3.5-5.1) 04/28/22 18:30 Chloride 103 mmol/L (98-107) 04/28/22 18:30 Carbon Dioxide 24 mmol/L (22-29) 04/28/22 18:30 Anion Gap 15.6 (5-19) 04/28/22 18:30 BUN 14 mg/dL (6-20) 04/28/22 18:30 Creatinine 0.6 mg/dL (0.5-0.9) 04/28/22 18:30 GFR Calculation 115.9 mL/min (90-130) 04/28/22 18:30 Calculated Osmolality 291 mOsm/kg (285-295) 04/28/22 18:30 Calcium 9.0 mg/dL (8.5-10.5) 04/28/22 18:30 Total Bilirubin 0.3 mg/dL (0.15-1.2) 04/28/22 18:30 AST 19 U/L (0-32) 04/28/22 18:30 ALT 20 U/L (0-33) 04/28/22 18:30 Alkaline Phosphatase 85 U/L (35-105) 04/28/22 18:30 Troponin T Baseline 6 ng/L (0-10) 04/28/22 18:30 Total Protein 6.6 g/dL (6.6-8.7) 04/28/22 18:30 Albumin 4.4 g/dL (3.5-5.2) 04/28/22 18:30 Globulin 2.2 g/dL (1.3-4.6) 04/28/22 18:30 EKG Data EKG 1: I personally reviewed and interpreted this EKG as follows: EKG interpretation date: 04/28/22 EKG interpretation time: 17:45 Interpretation: sinus tach hr [address] or t wave abnormalities qrs 87 qtc 381 Discharge Plan Discharge Patient Disposition: Home Clinical Impression: Chest pain Qualifiers: Chest pain type: unspecified Qualified Code(s): R07.9 - Chest pain, unspecified Condition: Stable Prescriptions: New Naprosyn 500 mg tablet 500 mg PO BID PRN (Reason: pain) Qty: 20 0RF Discharge Orders: Discharge ED (Routine); Ordered 04/28/22 Ordered By: Tray Stark Discharge Diet: Advance as tolerated Discharge Activity: Resume usual activity Patient Instructions: Chest Pain (ED) Coding Level of Care Code ED Electrical Tests Supervisor for Niko Brown
[2022-04-28 18:13] VITALS: BP 131/85; PULSE 106; O2SAT 96
[2022-04-28 18:43] LABS: Eosinophils # 0.1 10^3/uL (0.0-0.8); Eosinophils % 1.2 %; Hematocrit 43.3 % (37.0-47.0); Hemoglobin 14.6 g/dL (11.5-15.3); Lymphocytes % 25.1 %; Mean Corpuscular HGB Conc 33.7 g/dL (30.0-36.0); Mean Corpuscular Hemoglobin 30.7 pg (28.0-34.0); Mean Corpuscular Volume 91.2 fl (81-99); Mean Platelet Volume 11.1 fL (7.4-10.4); Monocytes # 0.3 10^3/uL (0.2-0.9); Monocytes % 7.8 %; Neutrophils # 2.65 10^3/uL (1.8-7.7); Neutrophils % 64.4 %; Nucleated Red Blood Cells % 0 %; Platelet Count 171 10^3/cmm (130-400); Red Blood Count 4.75 10^6/uL (4.1-5.3); Red Cell Distribution Width 11.9 % (12.1-15.1); White Blood Count 4.1 10^3/uL (4.0-10.0)
[2022-04-28 18:58] LABS: D Dimer 0.45 ug/mIFEU (0-0.59)
[2022-04-28 19:03] LABS: Alanine Aminotransferase 20 U/L (0-33); Albumin Level 4.4 g/dL (3.5-5.2); Alkaline Phosphatase 85 U/L (35-105); Anion Gap 15.6 (5-19); Aspartate Amino Transferase 19 U/L (0-32); Blood Urea Nitrogen 14 mg/dL (6-20); Carbon Dioxide 24 mmol/L (22-29); Chloride 103 mmol/L (98-107); Globulin 2.2 g/dL (1.3-4.6); Glomerular Filtration Rate 115.9 mL/min (90-130); Glucose 141 mg/dL (65-115); Osmolality Calculated 291 mOsm/kg (285-295); Potassium 3.6 mmol/L (3.5-5.1); Sodium 139 mmol/L (136-145); Total Bilirubin 0.3 mg/dL (0.15-1.2); Total Protein 6.6 g/dL (6.6-8.7)
[2022-04-28 19:06] LABS: Troponin(5th) Baseline 6 ng/L (0-10)
[2022-04-28 19:17] VITALS: RESP 26
[2022-04-28] MEDS: HYDROmorphone 1 mg/mL INJ 1 mL IVP (19:17)
[2022-04-28] MEDS: ondansetron 2 mg/ML SDV 2 mL 4 MG IVP (19:18)
[2022-04-28 19:45] VITALS: BP 131/101; PULSE 81; RESP 16; O2SAT 98
== END 2022-04-28 19:46 | disposition home or self-care (01) ==
PROVIDERS: Emergency Provider Emergency Medicine
DX: R07.9 Chest pain, unspecified (principal)
CPT/HCPCS: 71045; 80053; 84484; 85025; 85378; 93005; 93010; 96374; 96375; 99285; J1170; J2405

== ENCOUNTER 2022-06-20 14:06 | Emergency (ER) | payer BC, MEDICAID, SELFPAY ==
[2022-06-20 14:40] VITALS: BP 127/80; PULSE 101; RESP 18; TEMP 36.6; O2SAT 99; BMI 36.6
--- NOTE | 2022-06-20 15:00 | ED_ITS ---
HPI - URI/Sore Throat General: Chief Complaint: Upper Respiratory Infection Stated Complaint: Cough/Sore throat Time Seen by Provider: 06/20/22 14:44 Source: patient Mode of arrival: ambulatory Limitations: no limitations History of Present Illness: 32-year-old female presents to the ER today for cough and sore throat. Patient reports her cough is been going on approximately 2 weeks. Patient reports her sore throat started about 3 days ago. She reports the beginning of her cough she had a fever however she has not had a fever in the last week or so. Patient has been taking [id number] medications for cough relief. She denies any body aches. She reports a slight runny nose and sneezing in the beginning however that has improved. Patient reports daughter is sick with similar symptoms. Review of Systems General: Reports: 10 or more systems reviewed and unremarkable except in HPI and below PFSH ED PFSH: Medical History No pertinent past medical history Female Reproductive History: Date of last menstrual period: 03/21/21 Physical Exam Const: COMMON NORMALS: no acute distress, average body habitus, patient oriented x3, no limitations, healthy appearing, alert and well nourished HENMT: COMMON NORMALS: normocephalic, atraumatic, external ears normal, Normal external nose present, Normal nasal mucous membranes and turbinates present and moist oral mucous membranes HEAD & SCALP: normocephalic and atraumatic NOSE: Normal external nose present and Normal nasal mucous membranes and turbinates present EXTERNAL EAR: Yes external ears normal THROAT: posterior oropharynx abnormal erythema (Mild); no edema and no exudates Eye: COMMON NORMALS: conjunctivae normal CONJUNCTIVA: Yes conjunctivae normal Neck/C-Spine: COMMON NORMALS: full ROM and no lymphadenopathy Resp: COMMON NORMALS: normal respiratory effort, No retractions and clear to auscultation bilaterally AUSCULTATION: clear to auscultation bilaterally Cardio: COMMON NORMALS: regular rate, regular rhythm and No murmurs present (Cardio) RATE: regular rate RHYTHM: regular rhythm Extremity: COMMON NORMALS: normal to inspection and full ROM Neuro: COMMON NORMALS: patient oriented x3 SENSORIUM/ORIENTATION: Yes alert Psych: COMMON NORMALS: mental status grossly normal, Normal thought process present and cooperative THOUGHT PROCESS: Normal thought process present Skin: COMMON NORMALS: no rashes or lesions noted and no wounds GENERAL SKIN EXAM: no rashes or lesions noted Course ED course: Patient presents to the ER today with sore throat and cough for the last week to 2 weeks. No fevers in the last week or so. We will get a strep and COVID at this time. Vital Signs: Vital signs: Vital Signs Temperature 98 F 06/20/22 14:40 Pulse Rate 101 H 06/20/22 14:40 Respiratory Rate 18 06/20/22 14:40 Blood Pressure 127/80 06/20/22 14:40 Pulse Oximetry 99 06/20/22 14:40 Oxygen Delivery Me thod 06/20/22 14:40 MDM - URI/Sore Throat Medical Decision Making COVID and strep negative. Likely patient has a viral upper respiratory infection. We will do Tessalon Perles for cough. Recommended Mucinex for congestion. Push fluids. Follow-up with PCP in 1 week if no improvement. Return to the ER with new or worsening symptoms. Patient verbalized understanding and was in agreement with the treatment plan. Lab Data Laboratory Results SARS-CoV-2 Ag (Rapid) negative (Negative) 06/20/22 15:05 Group A Strep Rapid Negative (Negative) 06/20/22 15:05 Critical Care Time Critical Care Time: Critical Care Time: No Discharge Plan Discharge Patient Disposition: Home Clinical Impression: URI (upper respiratory infection) Qualifiers: URI type: unspecified viral URI Qualified Code(s): J06.9 - Acute upper respiratory infection, unspecified Condition: Stable Prescriptions: New benzonatate 100 mg capsule 100 mg PO TID PRN (Reason: cough) Qty: 14 0RF No Action Naprosyn 500 mg tablet 500 mg PO BID PRN (Reason: pain) Qty: 20 0RF Discharge Orders: Discharge ED (Routine); Ordered 06/20/22 Ordered By: Alesha Hassan Referrals: Desire Brock DO [Primary Care Provider] - Discharge Diet: Usual diet Discharge Activity: Resume usual activity Patient Instructions: Opioid Safety, Pain Management Activity Restrictions/Additional Instructions: Take Tessalon Perles for cough as needed. Take Mucinex as discussed. Push fluids. Follow-up with PCP in 10 to 14 days if no improvement. Return to the ER with new or worsening symptoms. Coding Level of Care Code ED Class A Truck Driver for Chg Fwd Exam Comprehensive
[2022-06-20 15:25] LABS: Rapid Strep A Test Negative (Negative)
[2022-06-20 15:29] LABS: SARS Covid-2 Antigen negative (Negative)
[2022-06-20 16:17] VITALS: BP 149/83; PULSE 91; RESP 16; TEMP 36.9; O2SAT 98
== END 2022-06-20 16:19 | disposition home or self-care (01) ==
PROVIDERS: Emergency Provider Physician Assistant; PCP Pediatrics
DX: J06.9 Acute upper respiratory infection, unspecified (principal); Z20.822 Contact with and (suspected) exposure to COVID-19
CPT/HCPCS: 87081; 87426; 87880; 99283

== ENCOUNTER 2022-07-10 16:52 | Inpatient (IN) | payer BC, MEDICAID, SELFPAY ==
[2022-07-10 16:54] VITALS: BP 148/105; PULSE 107; RESP 17; TEMP 36.8; O2SAT 98; BMI 36.6
--- NOTE | 2022-07-10 16:58 | ED.C_ITS ---
HPI - Psych General: Chief Complaint: ER Hold Stated Complaint: SI Time Seen by Provider: 07/10/22 16:58 History of Present Illness: Ms Valljeo is a 32-year-old lady presenting to the emergency department due to for depression with suicidal ideation. She endorses worsening symptoms with significant worsening over the past few months. She has multiple times per day now thoughts of suicide and has considered various ways. She has thought of hanging herself, if she had access to firearms she believes that she already would have killed her self, she reports the only thing stopping her from killing herself would be the fear of her children finding her. She feels very limited emotionally and social support. She notes significant difficulty with sleep. She experiences hopelessness. She reports feeling tired of being alive and feeling like she is struggling. She is not currently on medications for depression. Intensity symptoms is severe. Course has worsened. No other specific changes in health, exacerbating, or alleviating factors identified. Onset (ago): month(s) Duration: getting worse History of same: Yes (Very remote as a child/teenager) Context: significant life stressor Associated symptoms: Reports depression, suicidal ideation and racing thoughts If self harm: admits thoughts of self harm and has plan Review of Systems General: Reports: 10 or more systems reviewed and unremarkable except in HPI and below Psych: Reports: depression and suicidal ideation [facility] ED PFSH: Medical History No pertinent past medical history Social History Smoking and tobacco status: current every day smoker Female Reproductive History: Date of last menstrual period: 03/21/21 Physical Exam Const: COMMON NORMALS: alert GENERAL APPEARANCE: cooperative and well developed HENMT: COMMON NORMALS: normocephalic and atraumatic HEAD & SCALP: normocephalic and atraumatic Eye: COMMON NORMALS: conjunctivae normal CONJUNCTIVA: Yes conjunctivae normal SCLERA: sclerae normal Neck/C-Spine: COMMON NORMALS: supple GENERAL: Yes trachea midline Resp: COMMON NORMALS: clear to auscultation bilaterally EFFORT & INS PECTION: Yes able to speak in complete sentences AUSCULTATION: clear to auscultation bilaterally Cardio: COMMON NORMALS: regular rate and regular rhythm RATE: regular rate RHYTHM: regular rhythm GI: COMMON NORMALS: Soft to palpation PALPATION: Yes Soft to palpation and No Tenderness to palpation present (GI) Extremity: GENERAL: Yes normal exam except as noted and No edema Neuro: COMMON NORMALS: moves all extremities SENSORIUM/ORIENTATION: Yes alert and No Orientation impaired Psych: COMMON NORMALS: mental status grossly normal and Normal thought process present ATTITUDE: Yes Withdrawn affect present MOOD & AFFECT: Yes dep ressed mood and Yes tearful THOUGHT PROCESS: Normal thought process present Course Vital Signs: Vital signs: Vital Signs Temperature 98.4 F 07/11/22 02:29 Pulse Rate 74 07/11/22 11:30 Respiratory Rate 14 07/11/22 11:30 Blood Pressure 122/77 07/11/22 11:30 Pulse Oximetry 96 07/11/22 11:30 Oxygen Delivery Me thod 07/11/22 11:30 MDM - Psych Medical Decision Making 32-year-old female presenting to the emergency department due to worsening depression with suicidal ideation with plan. Patient has had progressively worsening symptoms which now profoundly affect her life. She lacks adequate so cial support and feels hopeless. Patient is nontoxic on exam, she is tearful and appears depressed. Denies new medical concerns. EKG shows sinus rhythm without significant abnormality, no STEMI. Laboratory studies notable for minimal leukocytosis which is nonspecific in the absence of infectious symptoms, hemoglobin is normal as is platelet count. Metabolic panel with no significant abnormality, TSH normal. hCG is negative and there is no evidence of urinary tract infection. Toxic ingestions including UDS are negative with exception of THC which is positive. COVID-negative. Given severity of symptoms I believe that the patient requires inpatient stabilization, evaluation, and treatment for psychiatric condition. Based on ED evaluation at this point there is no obvious condition that would preclude the patient from inpatient management of psychiatric symptoms.. Discussed with psychiatry service and patient accepted for admission at our Neuropsych Unit. Medical Records I reviewed the patient's medical records. Lab Data I reviewed the patient's lab results. : 07/10/22 18:01 07/10/22 18:01 Laboratory Results WBC 10.7 10^3/uL (4.0-10.0) H 07/10/22 18: RBC 4.87 10^6/uL (4.1-5.3) 07/10/22 18: Hgb 14.7 g/dL (11.5-15.3) 07/10/22 18: Hct 43.4 % (37.0-47.0) 07/10/22 18: MCV 89.1 fl (81-99) 07/10/22 18: MCH 30.2 pg (28.0-34.0) 07/10/22 18: MCHC 33.9 g/dL (30.0-36.0) 07/10/22 18: RDW 12.3 % (12.1-15.1) 07/10/22 18: Plt Count 243 10^3/cmm (130-400) 07/10/22 18: MPV 10.6 fL (7.4-10.4) H 07/10/22 18: Neut % (Auto) 65.3 % 07/10/22 18: Lymph % (Auto) 24.6 % 07/10/22 18: [place] % (Auto) 6.5 % 07/10/22 18: Eos % (Auto) 2.7 % 07/10/22 18: Baso % (Auto) 0.5 % 07/10/22 18: Neut # (Auto) 7.01 10^3/uL (1.8-7.7) 07/10/22 18: Lymph # (Auto) 2.6 10^3/uL (0.8-4.8) 07/10/22 18: [place] # (Auto) 0.7 10^3/uL (0.2-0.9) 07/10/22 18: Eos # (Auto) 0.3 10^3/uL (0.0-0.8) 07/10/22 18: Baso # (Auto) 0.1 10^3/uL (0.0-0.1) 07/10/22 18: Nucleated RBC % (auto) 0 % 07/10/22 18: Nucleated RBCs # 0.0 /100WBC 07/10/22 18: Sodium 135 mmol/L (136-145) L 07/10/22 18: Potassium 4.2 mmol/L (3.5-5.1) 07/10/22 18: Chloride 102 mmol/L (98-107) 07/10/22: Carbon Dioxide 24 mmol/L (22-29) 07/10/22 18: Anion Gap 13.2 (5-19) 07/10/22 18: BUN 15 mg/dL (6-20) 07/10/22 18: Creatinine 0.6 mg/dL (0.5-0.9) 07/10/22 18: GFR Calculation 115.9 mL/min (90-130) 07/10/22 18: Glucose 94 mg/dL (65-115) 07/10/22 18: Calculated Osmolality 281 mOsm/kg (285-295) L 07/10/22 18: Calcium 9.5 mg/dL (8.5-10.5) 07/10/22 18: Total Bilirubin 0.5 mg/dL (0.15-1.2) 07/10/22 18: AST 10 U/L (0-32) 07/10/22 18: ALT 13 U/L (0-33) 07/10/22 18: Alkaline Phosphatase 81 U/L (35-105) 07/10/22 18: Total Protein 7.1 g/dL (6.6-8.7) 07/10/22 18: Albumin 4.4 g/dL (3.5-5.2) 07/10/22 18: Globulin 2.7 g/dL (1.3-4.6) 07/10/22 18: TSH 1.22 uIU/mL (0.27-4.20) 07/10/22 18: HCG, Qual Negative (Negative) 07/10/22: Urine Color Yellow (Yellow) 07/10/22: Urine Appearance Clear (CLEAR) 07/10/22: Urine pH 5 (5-7) 07/10/22: Ur Specific [place] 1.020 (1.005-1.030) 07/10/22: Urine Protein Neg (Negative) 07/10/22: Urine Glucose (UA) Norm (Normal) 07/10/22 17: Urine Ketones Negative (Negative) 07/10/22: Urine Blood Neg (Negative) 07/10/22: Urine Nitrate Negative (Negative) 11/03/22 17:29 Urine Bilirubin Neg (Negative) 07/10/22 17:29 Urine Urobilinogen Norm mg/dL (Negative) 07/10/22 17:29 Ur Leukocyte Esterase Negative (Negative) 07/10/22 17:29 Salicylates < 0.3 mg/dL (3-10) L 07/10/22 18:01 Urine Opiates Screen Negative ng/mL (Negative) 07/10/22 17:29 Acetaminophen < 5.0 ug/mL (10-30) L 07/10/22 18:01 Ur Barbiturates Screen Negative ng/mL (Negative) 07/10/22 17:29 Ur Phencyclidine Scrn Negative ng/mL (Negative) 07/10/22 17:29 Ur Amphetamines Screen Negative ng/mL (Negative) 07/10/22 17:29 U Benzodiazepines Scrn Negative ng/mL (Negative) 07/10/22 17:29 Urine Cocaine Screen Negative ng/mL (Negative) 07/10/22 17:29 U Marijuana (THC) Screen Positive ng/mL (Negative) H 07/10/22 17:29 Ethyl Alcohol < 10 mg/dL (0-10) 07/10/22 18:01 SARS-CoV-2 Ag (Rapid) negative (Negative) 07/10/22 17:29 Discharge Plan Discharge Patient Disposition: Admitted As Inpatient Admit Provider: Braeden Martínez Clinical Impression: Suicidal ideation, Depression Condition: Stable Coding Level of Care Code ED Environmental Manager for Niko Fwd Exam Comprehensive
--- NOTE | 2022-07-10 18:07 | ECG_ITS ---
[facility] Test Date: 2022-07-10 Pat Name: Jennifer Vallejo Department: Room: Gender: Female Medical Chief Technician: : 1990 Requested By: Marcelo Martines Order Number: [id number] Charissa MD: Jing Sorenson M.D. Measurements Intervals [place] Rate: 66 P: 43 MN: 153 QRS: 71 QRSD: 91 T: 48 QT: 387 QTc: 407 Interpretive Statements SINUS RHYTHM WITH SINUS ARRHYTHMIA Compared to ECG 04/28/2022 18:11:53 Sinus tachycardia no longer present Electronically Signed On 07-11-2022 11:49:43 CDT by Jing Sorenson M.D. [id number]
[2022-07-10 18:12] LABS: Basophils # 0.1 10^3/uL (0.0-0.1); Basophils % 0.5 %; Eosinophils # 0.3 10^3/uL (0.0-0.8); Eosinophils % 2.7 %; Hematocrit 43.4 % (37.0-47.0); Hemoglobin 14.7 g/dL (11.5-15.3); Lymphocytes # 2.6 10^3/uL (0.8-4.8); Lymphocytes % 24.6 %; Mean Corpuscular HGB Conc 33.9 g/dL (30.0-36.0); Mean Corpuscular Hemoglobin 30.2 pg (28.0-34.0); Mean Corpuscular Volume 89.1 fl (81-99); Mean Platelet Volume 10.6 fL (7.4-10.4); Monocytes # 0.7 10^3/uL (0.2-0.9); Monocytes % 6.5 %; Neutrophils # 7.01 10^3/uL (1.8-7.7); Neutrophils % 65.3 %; Nucleated Red Blood Cells % 0 %; Platelet Count 243 10^3/cmm (130-400); Red Blood Count 4.87 10^6/uL (4.1-5.3); Red Cell Distribution Width 12.3 % (12.1-15.1); White Blood Count 10.7 10^3/uL (4.0-10.0)
[2022-07-10 18:23] LABS: Add Urine Microscopic? NO; Charge for UA Resulting for Rev
[2022-07-10 18:25] LABS: Bilirubin Urine Neg (Negative); Blood Urine Neg (Negative); Glucose Urine UA Norm (Normal); Ketones Urine Negative (Negative); Leukocyte Esterase Urine Negative (Negative); Nitrate Urine Negative (Negative); Protein Urine Neg (Negative); Urine Appearance Clear (CLEAR); Urine Color Yellow (Yellow); Urobilinogen Urine Norm (Negative); pH Urine 5 (5-7)
[2022-07-10 18:26] LABS: HCG Qualitative Urine. Negative (Negative)
[2022-07-10 18:34] LABS: Amphetamines Screen Urine Negative (Negative); Barbiturates Screen Urine Negative (Negative); Benzodiazepines Screen Urine Negative (Negative); Cocaine Screen Urine Negative (Negative); Opiate Screen Urine Negative (Negative); PCP Screen Urine Negative (Negative); THC Screen Urine Positive (Negative)
[2022-07-10 18:35] LABS: Alanine Aminotransferase 13 U/L (0-33); Albumin Level 4.4 g/dL (3.5-5.2); Alkaline Phosphatase 81 U/L (35-105); Anion Gap 13.2 (5-19); Aspartate Amino Transferase 10 U/L (0-32); Blood Urea Nitrogen 15 mg/dL (6-20); Calcium 9.5 mg/dL (8.5-10.5); Carbon Dioxide 24 mmol/L (22-29); Chloride 102 mmol/L (98-107); Globulin 2.7 g/dL (1.3-4.6); Glomerular Filtration Rate 115.9 mL/min (90-130); Glucose 94 mg/dL (65-115); Osmolality Calculated 281 mOsm/kg (285-295); Potassium 4.2 mmol/L (3.5-5.1); Sodium 135 mmol/L (136-145); Thyroid Stimulating Hormone 1.22 uIU/mL (0.27-4.20); Total Bilirubin 0.5 mg/dL (0.15-1.2); Total Protein 7.1 g/dL (6.6-8.7)
[2022-07-10 18:38] LABS: Acetaminophen < 5.0 ug/mL (10-30); Alcohol Level < 10 mg/dL (0-10); Salicylate < 0.3 mg/dL (3-10)
[2022-07-10 18:39] LABS: SARS Covid-2 Antigen negative (Negative)
--- NOTE | 2022-07-10 20:12 | PC.NURSE ---
patient sleeping comfortably in bed at this time. patient in no obvious distress. patient with noted even chest rise and fall. Safety checks performed and sitter at bedside.
[2022-07-11 02:29] VITALS: BP 122/77; PULSE 74; RESP 13; TEMP 36.9; O2SAT 96
[2022-07-11 11:30] VITALS: BP 122/77; PULSE 74; RESP 14; O2SAT 96
[2022-07-11 14:39] VITALS: BP 122/65; PULSE 95; RESP 18; TEMP 36.9; O2SAT 97
[2022-07-11 20:35] VITALS: BP 129/85; PULSE 101; RESP 18; TEMP 36.7; O2SAT 98
[2022-07-12 06:00] VITALS: BP 112/74; PULSE 84; RESP 16; TEMP 36.9; O2SAT 95
--- NOTE | 2022-07-12 09:56 | W.PM.NPUH&PS ---
Providers/Chief Complaint Admitting Physician: Braeden Martínez MD Primary Care Provider: Desire Brock DO Chief Complaint: SI HPI NPU History of Present Illness Jennifer Vallejo is a 32 year old female who presented to the emergency department with the following report: Chief Complaint: ER Hold Stated Complaint: SI Time Seen by Provider: 07/10/22 16:58 History of Present Illness: Ms Vallejo is a 32-year-old lady presenting to the emergency department due to for depression with suicidal ideation. She endorses worsening symptoms with significant worsening over the past few months. She has multiple times per day now thoughts of suicide and has considered various ways. She has thought of hanging herself, if she had access to firearms she believes that she already would have killed her self, she reports the only thing stopping her from killing herself would be the fear of her children finding her. She feels very limited emotionally and social support. She notes significant difficulty with sleep. She experiences hopelessness. She reports feeling tired of being alive and feeling like she is struggling. She is not currently on medications for depression. Intensity symptoms is severe. Course has worsened. No other specific changes in health, exacerbating, or alleviating factors identified. Onset (ago): month(s) Duration: getting worse History of same: Yes (Very remote as a child/teenager) Context: significant life stressor Associated symptoms: Reports depression, suicidal ideation and racing thoughts If self harm: admits thoughts of self harm and has plan. She was admitted to the neuropsychiatric unit for definitive treatment of those issues. She presents today reporting that she has been struggling mightily recently with depression. She reports that it has been a problem for some time. She reports that a lot of this probably goes back to her childhood as reported both of her parents were alcoholics. Her mother's alcoholism was so significant that at about age 15 CYS got involved and she was placed in foster homes and was in foster homes until she aged out at 18. She reports that she has had significant challenges in her life and that those have converged on her and she has made the area of not being engaged in treatment though she has been in treatment before. She endorses some tobacco use, alcohol use and marijuana. She denied any other addictive behavior and denied legal implications from her drug use. She denied inpatient psychiatric care in the past. We discussed the risk benefits and alternatives of initiating Prozac significantly and feeling that he may proceed as documented in this note. Psychiatric history: As above. Substance abuse history: As above. Family history: She denied significant mental health issues on either side of the family, endorsed addiction history on both sides of the family, and denies suicide attempts or completions on either side of the family. Developmental history: She denied any issues at and reported to her to walk and talk and met her developmental milestones on time. She did receive speech therapy but denied learning support, emotional support or special education classes. Psychosocial history: She reports her parents were together when she was born endorses having 2 sisters and a brother through her parents. She reports her childhood was normal in general there was the neglect and challenges of the alcoholism. As stated above she did end up going into foster care for several years. She did not graduate from high school and like to get her GED. She endorsed being heterosexual with her longest relationship being 20 years. She is currently and has been 1 time and has 4 children a 13 and a 6-year-old that are girls and a 12 and 7-year-old that are boys. She was in the briefly in basic training be released because she was . She endorsed being Oriental Orthodox. 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 She currently lives in a trailer with her and 4 children. Legal history: Denied. Medical history: She endorses having 4 pregnancies with deliveries. And having a thyroid issue that she has not been managing. Meds NPU Home Medications Medication Instructions Recorded Confirmed Last Taken Type No Known Home Medications 07/11/22 07/11/22 Unknown History Allergies Allergy/AdvReac Type Severity Reaction Status Date / Time No Known Allergies Allergy Verified 07/11/22 07:11 PFS NPU PFSH: Medical History No pertinent past medical history Social History Smoking and tobacco status: current every day smoker Mental Status Exam MSE Comments: This is an obese white female in hospital scrubs with limited grooming but adequate eye contact. No abnormal movements except for mild psychomotor retardation. Cooperative with exam in mild distress. Speech was normal rate and volume. Mood described as better today but missing her children, affect congruent but occasionally tearful. Thought process organized. Thought content: Patient denied suicidal or homicidal ideation, there were no delusions reported or noted, she denied any auditory or visual hallucinations. Attention and concentration were intact and memory appeared reliable but none were formally tested. She alert and oriented x3. Insight and judgment appear fair and impulse control appears limited. Vitals/I&O/Wt Last Vital Signs Temp 98.0 F 07/11/22 20:35 Pulse 101 H 07/11/22 20:35 Resp 18 07/11/22 20:35 BP 129/85 07/11/22 20:35 Pulse Ox 98 07/11/22 20:35 O2 Del Method 07/11/22 14:39 Weight last 48 hrs Weight 90.718 kg Data NPU : 07/10/22 18:01 07/10/22 18:01 A&P Assessment and plan (1) Suicidal ideation: (2) Major depressive disorder, recurrent: (3) Cannabis use disorder: Plan This is a 30-year-old white female with a long history of depression and childhood challenges who presents with significant depression and suicidality, now medications with possible medical comorbidities that could be affecting her presentation. 1. Initiate Prozac 20 mg p.o. every morning and await hospitalist recommendation as far as restarting Synthroid. 2. Continue every 15 minute checks for safety. 3. Encourage individual, group milieu therapies. 4. Encourage sober living treatment as indicated outside the hospital at the highest level care to which she is willing to commit. 5. He hospitalist consult to identify whether restarting Synthroid is appropriate. Involuntary Hold Information 96 Hour Hold: 96 Hour Involuntary Admission: No Attestations NPU Medical Necessity Statement*: Inpatient hospitalization is medically necessary and the clinically appropriate intervention at this time. We will initiate/monitor medications and make changes as indicated. She will be in the hospital for over 2 midnights. Likely length of stay 3 to 5 days. Coding Level of Care Code Acute Hand Sign Writer for Niko Fwjulissa Diagnoses Suicidal ideation R45.851 Major depressive disorder, recurrent F33.9 Cannabis use disorder F12.90
[2022-07-12] MEDS: fluoxetine 20 mg Capsule PO (11:06)
[2022-07-12 14:00] VITALS: BP 121/78; PULSE 87; RESP 16; TEMP 36.6; O2SAT 98
[2022-07-12] MEDS: acetaminophen 325 mg Tablet 650 MG PO ×2 (14:07→18:51)
[2022-07-12] MEDS: trazodone 50 mg Tablet PO (20:26)
[2022-07-12 22:00] VITALS: BP 115/73; PULSE 70; RESP 16; TEMP 36.9; O2SAT 97
[2022-07-13 06:00] VITALS: BP 111/65; PULSE 63; RESP 17; TEMP 36.9; O2SAT 97; BMI 36.6
[2022-07-13] MEDS: fluoxetine 20 mg Capsule PO (08:04)
[2022-07-13 14:00] VITALS: BP 133/63; PULSE 98; RESP 18; TEMP 36.6; O2SAT 97
[2022-07-13 16:20] LABS: T3 Free 2.9 PG/ML (2.0-4.4)
--- NOTE | 2022-07-13 16:25 | W.PM.NPUPNS ---
Subjective NPU Subjective: Patient presents today reporting that she is feeling better and more optimistic. She denies side effects to the Prozac and we discussed with the treatment team tomorrow for appropriate aftercare options. We discussed the likelihood of discharge in the next 48 hours. Mental Status Exam MSE Comments: This is an obese white female in hospital scrubs with limited grooming but adequate eye contact. No abnormal movements except for mild psychomotor retardation. Cooperative with exam in no acute distress. Speech was normal rate and volume. Mood described as feeling a lot better but missing her children, affect congruent but occasionally tearful. Thought process organized. Thought content: Patient denied suicidal or homicidal ideation, there were no delusions reported or noted, she denied any auditory or visual hallucinations. Attention and concentration were intact and memory appeared reliable but none were formally tested. She alert and oriented x3. Insight and judgment appear fair and impulse control appears limited, but improving. Vitals/I&O/Wt Last Vital Signs Temp 98.6 F 07/13/22 19:35 Pulse 107 H 07/13/22 19:35 Resp 14 07/13/22 19:35 BP 115/72 07/13/22 19:35 Pulse Ox 97 07/13/22 19:35 O2 Del Method 07/13/22 14:00 Weight last 48 hrs Weight 89.981 kg Weight 90.718 kg Data NPU : 07/10/22 18:01 07/10/22 18:01 A&P Assessment and plan (1) Suicidal ideation: (2) Major depressive disorder, recurrent: (3) Cannabis use disorder: Plan This is a 30-year-old white female with a long history of depression and childhood challenges who presents with significant depression and suicidality, now medications with possible medical comorbidities that could be affecting her presentation. 1. Initiated Prozac 20 mg p.o. daily. 2. Continue every 15 minute checks for safety. 3. Encourage individual, group milieu therapies. 4. Encourage sober living treatment as indicated outside the hospital at the highest level care to which she is willing to commit. 5. TSH was 1.20 in the normal range and patient will be advised to follow-up with PCP after discharge. Involuntary Hold Information 96 Hour Hold: 96 Hour Involuntary Admission: No Attestations NPU Medical Necessity Statement*: Inpatient hospitalization is medically necessary and the clinically appropriate intervention at this time. We will initiate/monitor medications and make changes as indicated. Likely length of stay 1-3 days. Coding Level of Care Code Acute Records And Tape Recordings Engineer for Chg Fwd Diagnoses Suicidal ideation R45.851 Major depressive disorder, recurrent F33.9 Cannabis use disorder F12.90
[2022-07-13 19:35] VITALS: BP 115/72; PULSE 107; RESP 14; TEMP 37; O2SAT 97
[2022-07-13] MEDS: trazodone 50 mg Tablet PO (22:11)
[2022-07-14 06:00] VITALS: BP 98/55; PULSE 81; RESP 14; TEMP 36.8; O2SAT 97
--- NOTE | 2022-07-14 07:49 | PC.NURSE ---
SHIFT ASSESSMENT DENIES SI/HI/AVH CURRENTLY...STATED SHE THINKS SHE WILL BE DISCHARGED TODAY. DID C/O SOME PAIN IN RIGHT EAR, STATES SHE HAD DOUBLE EAR INFECTION A MONTH AGO BUT DID COMPLETE ANTIBIOTICS...STILL C/O SOME PAIN IN RIGHT EAR, STATED LAST NIGHT SHE YAWNED AND HEARD A CLICKING SOUND IN RIGHT EAR.
[2022-07-14] MEDS: fluoxetine 20 mg Capsule PO (07:58)
--- NOTE | 2022-07-14 11:38 | W.PM.NPUDCS ---
Diagnoses at Discharge Discharge Diagnosis (1) Suicidal ideation: Status: Resolved (2) Major depressive disorder, recurrent: Status: Acute (3) Cannabis use disorder: Status: Acute Reason for Visit Reason for Visit: SI Brief History: History of Present Illness Jennifer Vallejo is a 32 year old female who presented to the emergency department with the following report: Chief Complaint: ER Hold Stated Complaint: SI Time Seen by Provider: 07/10/22 16:58 History of Present Illness: Ms Vallejo is a 32-year-old lady presenting to the emergency department due to for depression with suicidal ideation. She endorses worsening symptoms with significant worsening over the past few months. She has multiple times per day now thoughts of suicide and has considered various ways. She has thought of hanging herself, if she had access to firearms she believes that she already would have killed her self, she reports the only thing stopping her from killing herself would be the fear of her children finding her. She feels very limited emotionally and social support. She notes significant difficulty with sleep. She experiences hopelessness. She reports feeling tired of being alive and feeling like she is struggling. She is not currently on medications for depression. Intensity symptoms is severe. Course has worsened. No other specific changes in health, exacerbating, or alleviating factors identified. Onset (ago): month(s) Duration: getting worse History of same: Yes (Very remote as a child/teenager) Context: significant life stressor Associated symptoms: Reports depression, suicidal ideation and racing thoughts If self harm: admits thoughts of self harm and has plan. She was admitted to the neuropsychiatric unit for definitive treatment of those issues. She presents today reporting that she has been struggling mightily recently with depression. She reports that it has been a problem for some time. She reports that a lot of this probably goes back to her childhood as reported both of her parents were alcoholics. Her mother's alcoholism was so significant that at about age 15 CYS got involved and she was placed in foster homes and was in foster homes until she aged out at 18. She reports that she has had significant challenges in her life and that those have converged on her and she has made the area of not being engaged in treatment though she has been in treatment before. She endorses some tobacco use, alcohol use and marijuana. She denied any other addictive behavior and denied legal implications from her drug use. She denied inpatient psychiatric care in the past. We discussed the risk benefits and alternatives of initiating Prozac significantly and feeling that he may proceed as documented in this note. Psychiatric history: As above. Substance abuse history: As above. Family history: She denied significant mental health issues on either side of the family, endorsed addiction history on both sides of the family, and denies suicide attempts or completions on either side of the family. Developmental history: She denied any issues at and reported to her to walk and talk and met her developmental milestones on time. She did receive speech therapy but denied learning support, emotional support or special education classes. Psychosocial history: She reports her parents were together when she was born endorses having 2 sisters and a brother through her parents. She reports her childhood was normal in general there was the neglect and challenges of the alcoholism. As stated above she did end up going into foster care for several years. She did not graduate from high school and like to get her GED. She endorsed being heterosexual with her longest relationship being 20 years. She is currently and has been 1 time and has 4 children a 13 and a 6-year-old that are girls and a 12 and 7-year-old that are boys. She was in the briefly in basic training be released because she was . She endorsed being Mosque. 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 She currently lives in a trailer with her and 4 children. Legal history: Denied. Medical history: She endorses having 4 pregnancies with deliveries. And having a thyroid issue that she has not been managing. Hospital Course Hospital Course She slowly acclimated to the individual, group and milieu therapies.? She was started on Prozac 20 mg p.o. every morning for her depression without incident. She showed significant improvement during the hospitalization and was able to contract for safety outside of the hospital, prior to discharge.? During the hospitalization, patient had routine laboratory studies which were within normal limits except for few outliers.? Additionally there was a general medical evaluation which was also within normal limits and revealed no new acute processes. Discharge Summary: At the time of discharge, she denied psychosis or lethality.? Mood and anxiety were well managed.? Patient endorsed a plan to avoid all drugs of abuse and follow-up with the aftercare recommendations of the treatment team.? Patient was evaluated and deemed to be absent credible lethality, and had achieved the maximum benefit from an inpatient hospitalization, so was discharged. Involuntary Hold Information 96 Hour Hold: 96 Hour Involuntary Admission: No Mental Status Exam MSE Comments: This is an obese white female in hospital scrubs with limited grooming but adequate eye contact. No abnormal movements except for mild psychomotor retardation. Cooperative with exam in no acute distress. Speech was normal rate and volume. Mood described as feeling a lot better, affect congruent. Thought process organized. Thought content: Patient denied suicidal or homicidal ideation, there were no delusions reported or noted, she denied any auditory or visual hallucinations. Attention and concentration were intact and memory appeared reliable but none were formally tested. She alert and oriented x3. Insight and judgment appear fair and impulse control appears improving. Discharge Data Studies Completed and Pending: Pending at discharge Category Date Time Status TSH Receptor Bind ing Antibody [facility] 07/13/22 14:59 Received Laboratory Results WBC 10.7 10^3/uL (4.0 -10.0) H 07/10/22 18:01 RBC 4.87 10^6/uL (4.1 -5.3) 07/10/22 18:01 Hgb 14.7 g/dL (11.5-1 5.3) 07/10/22 18:01 Hct 43.4 % (37.0-47.0 ) 07/10/22 18:01 MCV 89.1 fl (81-99) 07/10/22 18:01 MCH 30.2 pg (28.0-34. 0) 07/10/22 18:01 MCHC 33.9 g/dL (30.0-3 6.0) 07/10/22 18:01 RDW 12.3 % (12.1-15.1 ) 07/10/22 18:01 Plt Count 243 10^3/cmm (130 -400) 07/10/22 18:01 MPV 10.6 fL (7.4-10.4 ) H 07/10/22 18:01 Neut % (Auto) 65.3 % 07/10/22 18: Lymph % (Auto) 24.6 % 07/10/22 18: Brooke % (Auto) 6.5 % 07/10/22 18:01 Eos % (Auto) 2.7 % 07/10/22 18:01 Baso % (Auto) 0.5 % 07/10/22 18: Neut # (Auto) 7.01 10^3/uL (1.8 -7.7) 07/10/22 18: Lymph # (Auto) 2.6 10^3/uL (0.8- 4.8) 07/10/22 18:01 Brooke # (Auto) 0.7 10^3/uL (0.2- 0.9) 07/10/22 18: Eos # (Auto) 0.3 10^3/uL (0.0- 0.8) 07/10/22 18: Baso # (Auto) 0.1 10^3/uL (0.0- 0.1) 07/10/22 18: Nucleated RBC % (a uto) 0 % 07/10/22 18: Nucleated RBCs # 0.0 /100WBC 07/10/22 18: Sodium 135 mmol/L (136-1 45) L 07/10/22 18: Potassium 4.2 mmol/L (3.5-5 .1) 07/10/22 18: Chloride 102 mmol/L (98-10 7) 07/10/22 18: Carbon Dioxide 24 mmol/L (22-29) 07/10/22 18: Anion Gap 13.2 (5-19) 07/10/22 18: BUN 15 mg/dL (6-20) 07/10/22 18: Creatinine 0.6 mg/dL (0.5-0. 9) 07/10/22 18: GFR Calculation 115.9 mL/min (90- 130) 07/10/22 18: Glucose 94 mg/dL (65-115) 07/10/22 18: Calculated Osmolal ity 281 mOsm/kg (285- 295) L 07/10/22 18: Calcium 9.5 mg/dL (8.5-10 .5) 07/10/22 18: Total Bilirubin 0.5 mg/dL (0.15-1 .2) 07/10/22 18: AST 10 U/L (0-32) 07/10/22 18: ALT 13 U/L (0-33) 07/10/22 18: Alkaline Phosphata se 81 U/L (35-105) 07/10/22 18:01 Total Protein 7.1 g/dL (6.6-8.7 ) 07/10/22 18: Albumin 4.4 g/dL (3.5-5.2 ) 07/10/22 18: Globulin 2.7 g/dL (1.3-4.6 ) 07/10/22 18: TSH 1.22 uIU/mL (0.27 -4.20) 07/10/22 18: Free T4 1.10 ng/dL (0.82- 1.77) 07/10/22 18: Free T3 2.9 PG/ML (2.0-4. 4) 07/10/22 18:01 HCG, Qual Negative (Negati ve) 07/10/22 17:29 Urine Color Yellow (Yellow) 07/10/22 17:29 Urine Appearance Clear (CLEAR) 07/10/22 17:29 Urine pH 5 (5-7) 07/10/22 17:29 Ur Specific Gravit y 1.020 (1.005-1.0 30) 07/10/22 17:29 Urine Protein Neg (Negative) 07/10/22 17:29 Urine Glucose (UA) Norm (Normal) 07/10/22 17:29 Urine Ketones Negative (Negati ve) 07/10/22 17:29 Urine Blood Neg (Negative) 07/10/22 17:29 Urine Nitrate Negative (Negati ve) 07/10/22 17:29 Urine Bilirubin Neg (Negative) 07/10/22 17:29 Urine Urobilinogen Norm mg/dL (Negat priscilla) 07/10/22 17:29 Ur Leukocyte Patti ase Negative (Negati ve) 07/10/22 17:29 Salicylates < 0.3 mg/dL (3-10 ) L 07/10/22 18:01 Urine Opiates Scre en Negative ng/mL (N egative) 07/10/22 17: Acetaminophen < 5.0 ug/mL (10-3 0) L 07/10/22 18:01 Ur Barbiturates Sc reen Negative ng/mL (N egative) 07/10/22 17:29 Ur Phencyclidine S crn Negative ng/mL (N egative) 07/10/22 17:29 Ur Amphetamines Sc reen Negative ng/mL (N egative) 07/10/22 17:29 U Benzodiazepines Scrn Negative ng/mL (N egative) 07/10/22 17:29 Urine Cocaine Scre en Negative ng/mL (N egative) 07/10/22 17:29 U Marijuana (THC) Screen Positive ng/mL (N egative) H 07/10/22 17:29 Ethyl Alcohol < 10 mg/dL (0-10) 07/10/22 18:01 SARS-CoV-2 Ag (Rap id) negative (Negati ve) 07/10/22 17:29 Vitals: Last Vital Signs Temp 98.2 F 07/14/22 06:00 Pulse 81 07/14/22 06:00 Resp 14 07/14/22 06:00 BP 98/55 07/14/22 06:00 Pulse Ox 97 07/14/22 06:00 O2 Del Method 07/13/22 14:00 Discharge Plan Discharge Patient Disposition: Home Condition: Stable Prescriptions: New fluoxetine 20 mg Capsule 20 mg PO DAILY 30 Days Qty: 30 1RF Discharge Orders: Discharge Order (Routine); Ordered 07/14/22 Ordered By: Braeden Martínez Referrals: [facility]- Dr. Orlando Bravo [Other] - 07/18/22 1:15 pm (Follow up. ) [facility] [Outside] - 1-3 days (Walk in for initial accessment. Thursday through Thursday 7:30 am to 3:00 pm. ) Discharge Diet: Regular Discharge Activity: Resume usual activity Patient Instructions: Fluoxetine (By mouth), Opioid Safety Discharge Attestations NPU Time Spent in Discharge Care*: less than 30 min Specific Discharge Activities: Specific discharge activities: educating patient, discussing with case mgr/social workers/dc planners, documenting/other paperwork and evaluating patient/reviewing data Coding Level of Care Code Acute Chg FW DC note Diagnoses Suicidal ideation R45.851 Major depressive disorder, recurrent F33.9 Cannabis use disorder F12.90
[2022-07-14 11:53] VITALS: BP 98/55; PULSE 81; RESP 14; TEMP 36.8; O2SAT 97
[2022-07-22 15:53] LABS: TSH Receptor Binding Antibody 1.05 IU/L (< OR = 2.00)
== END 2022-07-14 16:31 | disposition home or self-care (01) | DRG 885 ==
LOC: ER 22:03 → ER IP 07-11 01:11 → NP 07-11 14:25
PROVIDERS: Admitting Provider Psychiatry & Neurology Psychiatry; Emergency Provider Emergency Medicine; PCP Pediatrics; Visit Provider Psychiatry & Neurology Psychiatry
DX: F33.9 Major depressive disorder, recurrent, unspecified (principal); Z81.1 Family history of alcohol abuse and dependence; F17.200 Nicotine dependence, unspecified, uncomplicated; E07.9 Disorder of thyroid, unspecified; F12.90 Cannabis use, unspecified, uncomplicated; E66.9 Obesity, unspecified; Z68.36 Body mass index [BMI] 36.0-36.9, adult
CPT/HCPCS: 80053; 80306; 80307; 81003; 81025; 83516; 84439; 84443; 84481; 85025; 87426; 93005; 97150; 97165; 99285

== ENCOUNTER 2022-11-21 06:11 | Emergency (ER) | payer BC, MEDICAID, SELFPAY ==
[2022-11-21 06:15] VITALS: BP 144/74; PULSE 102; RESP 18; TEMP 36.8; O2SAT 96; BMI 40.2
--- NOTE | 2022-11-21 06:58 | W.ED.EXTPRO ---
HPI - Extremity Problem General: Chief complaint: Extremity Injury, Upper Stated complaint: left arm pain Time Seen by Provider: 11/21/22 06:46 Source: patient Mode of arrival: ambulatory History of Present Illness: 32-year-old female complains of forearm pain over the soft tissue just distal to the elbow. She did some moving of some heavy items yesterday had not kind of an odd twisting ankle she relates that seem to precipitate it she had no fall no trauma. The forearm feels swollen. She denies any pain radiating from her neck and no pain in the shoulder. No fever sweats or chills no loss of sensation. MD Complaint: extremity pain Onset (ago): hour(s) Pain Consistency: constant Location: left and upper extremity (Forearm) Radiation: none Relieving factors: nothing Exacerbating factors: nothing Associated symptoms: Deny arthralgias, chest pain, fever(s), myalgias, rash or short of breath Review of Systems Const: Denies: fever(s) Card: Denies: chest pain Musc: Reports: extremity pain; Denies: neck pain, joint pain or joint swelling Skin/Breast: Denies: rash PFSH ED PFSH: Medical History Depression No pertinent past medical history Social History Smoking and tobacco status: current every day smoker Physical Exam Extremity: OTHER: Examination left forearm there is no pain in the epicondyles no pain in the upper arm range of motion in the shoulder does not elicit any pain when the elbow and forearm are left isolated. Neurovascular is intact. Sensation to touch is normal. With movement patient has some discomfort with palpation of the forearm muscles particularly of the extensor muscle group the patient has increased discomfort. No pain in the arm with rotation side bending flexion extension of the neck. Course Vital Signs: Vital signs: Vital Signs Temperature 98.2 F 11/21/22 06:15 Pulse Rate 102 H 11/21/22 06:15 Respiratory Rate 18 11/21/22 06:15 Blood Pressure 144/74 11/21/22 06:15 Pulse Oximetry 96 11/21/22 06:15 MDM - Extremity (Nontraumatic) Medical Decision Making Moderate pain with passive range of motion it is not particularly disproportionate. She has some mild swelling of the forearm. She has mild discomfort with compression of those muscles. I do not believe she has a compartment syndrome at this time. She has no trauma this is more of an overuse injury by history. We will discharge patient home on steroids and anti-inflammatories if does not improve return Discharge Plan Discharge Patient Disposition: Home Clinical Impression: Left forearm pain Condition: Stable Prescriptions: New prednisone 20 mg tablet 20 mg PO TID Qty: 15 0RF Rx Instructions: 1 p.o. 3 times daily x3 days, 1 p.o. twice daily x2 days, 1 p.o. daily x2 days diclofenac sodium 75 mg tablet,delayed release (DR/EC) 75 mg PO Q12H PRN (Reason: pain) Qty: 20 0RF No Action fluoxetine 20 mg Capsule 20 mg PO DAILY 30 Days Qty: 30 1RF Discharge Orders: Discharge ED (Routine); Ordered 11/21/22 Ordered By: Steven Godfrey Referrals: Orlando Bravo MD [Primary Care Provider] - Discharge Diet: Usual diet Discharge Activity: Resume usual activity Patient Instructions: Opioid Safety, Pain Management Activity Restrictions/Additional Instructions: You are seen today for left forearm pain. Based on your exam it appears to be a muscle or ligament injury. Recommend we start you on a steroid taper. You were given steroids in the emergency room start the oral taper you are given a prescription of tomorrow. I also given an anti-inflammatory injectable. You can start the diclofenac and 8 hours take 1 every 12 hours as needed. Coding Level of Care Code ED Fine Grade Bulldozer Operator for Niko Brown
[2022-11-21] MEDS: dexamethasone 10 mg/mL INJ IM (07:10)
[2022-11-21] MEDS: ketorolac 60 mg/2 mL INJ IM (07:10)
[2022-11-21 07:24] VITALS: BP 144/74; PULSE 102; RESP 18; O2SAT 96
== END 2022-11-21 07:25 | disposition home or self-care (01) ==
PROVIDERS: Emergency Provider Family Medicine; PCP Family Medicine
DX: M79.632 Pain in left forearm (principal); F17.210 Nicotine dependence, cigarettes, uncomplicated
CPT/HCPCS: 96372; 99284; J1100; J1885

== ENCOUNTER 2023-08-11 16:23 | Emergency (ER) | payer BC, MEDICAID, SELFPAY ==
[2023-08-11 16:25] VITALS: PULSE 92; RESP 22; TEMP 36.7; O2SAT 97; BMI 43.7
[2023-08-11 16:46] VITALS: BP 107/58; PULSE 86; RESP 17; O2SAT 98
--- NOTE | 2023-08-11 16:49 | ED_ITS ---
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 States this happened just prior to arrival she is pain in that eye. She is unsure if she got any superolateral eye or eyelids or not matted shut or glued shut at this time. Rates her pain a 5 out of 10 Associated symptoms: Denies fever(s), headache(s), nausea, neck pain or vomiting Review of Systems Const: Denies: fever(s), chills, body aches or change in appetite Eyes: Reports: eye discomfort; Denies: blurry vision ENMT: Denies: throat pain or dental pain Card: Denies: chest pain Resp: Denies: dyspnea GI: Denies: abdominal pain, nausea, vomiting or diarrhea Musc: Denies: neck pain or back pain Skin/Breast: Denies: rash Neuro: Denies: headache(s) PFSH ED PFSH: Medical History Depression No pertinent past medical history Social History Smoking and tobacco/nicotine status: current every day tobacco/nicotine user Substance/Drug Use: unknown Physical Exam Const: COMMON NORMALS: no acute distress and patient oriented x3 HENMT: COMMON NORMALS: normocephalic and atraumatic HEAD & SCALP: normocephalic and atraumatic Eye: OTHER: Erythema noted to right conjunctive a no foreign bodies noted at this time. No abrasions or ulcers under fluorescein stain Neck/C-Spine: COMMON NORMALS: supple Chest: COMMONS NORMALS: normal inspection of the chest Resp: COMMON NORMALS: normal respiratory effort GI: INSPECTION: Yes normal to inspection Extremity: COMMON NORMALS: normal to inspection Neuro: COMMON NORMALS: patient oriented x3 Psych: COMMON NORMALS: mental status grossly normal Skin: COMMON NORMALS: no rashes or lesions noted GENERAL SKIN EXAM: no rashes or lesions noted Course Vital Signs: Vital signs: Vital Signs Temperature 98.0 F 08/11/23 16:25 Pulse Rate 86 08/11/23 16:46 Respiratory Rate 17 08/11/23 16:46 Blood Pressure 107/58 08/11/23 16:46 Pulse Oximetry 98 08/11/23 16:46 Oxygen Delivery Me thod Room Air 08/11/23 16:46 MDM - Eye Problem Medical Decision Making Patient presents here with right eye pain with chemical irritation to the eye her exam here is benign no signs of any serious injuries did wash her eye out we will place her on erythromycin ointment she is to follow-up ophthalmology return if worsening. Medical Records I reviewed the patient's medical records. No radiology studies performed this visit Discharge Plan Discharge Patient Disposition: Home Clinical Impression: Acute pain in right eye Condition: Stable Prescriptions: New erythromycin 5 mg/gram (0.5 %) ointment 1 applic ophthalmic (eye) QID 5 Days Qty: 3.5 0RF No Action prednisone 20 mg tablet 20 mg PO DAILY 5 Days Qty: 5 0RF Discharge Orders: Discharge ED (Routine); Ordered 08/11/23 Ordered By: Tray Stark Referrals: Orlando Bravo MD [Primary Care Provider] - Alejandro Messer [Physician] - 1-3 days Discharge Diet: Advance as tolerated Discharge Activity: Resume usual activity Patient Instructions: Eye Pain (ED) Coding Level of Care Code ED Drop Wire Hanger for Niko Brown
[2023-08-11] MEDS: fluorescein 1 mg Strip EYE-RIGHT (17:14)
[2023-08-11] MEDS: tetracaine 0.5% Op Soln 4 mL Btl 1 DROP EYE-RIGHT (17:14)
--- NOTE | 2023-08-11 17:15 | PC.NURSE ---
visual eye exam both 20/25 right 20/50 left 2049
[2023-08-11 17:30] VITALS: BP 113/73; PULSE 91; RESP 18; O2SAT 99
== END 2023-08-11 17:17 | disposition home or self-care (01) ==
PROVIDERS: Emergency Provider Emergency Medicine; PCP Family Medicine
DX: H57.11 Ocular pain, right eye (principal); Z72.0 Tobacco use
CPT/HCPCS: 99283

== ENCOUNTER 2023-09-02 20:03 | Emergency (ER) | payer BC, MEDICAID, SELFPAY ==
--- NOTE | 2023-09-02 20:14 | XRR_ITS ---
PROCEDURE INFORMATION: Exam: XR Chest Exam date and time: 09/02/2023 8:26 PM Age: 33 years old Clinical indication: Pain; Chest pressure; Additional info: Cp TECHNIQUE: Imaging protocol: Radiologic exam of the chest. Views: 1 view. COMPARISON: CR XR chest 1V portable [id number] 04/28/2022 6:09 PM FINDINGS: Lungs: Low lung volumes. Pleural spaces: No pleural effusion. No pneumothorax. Heart/Mediastinum: Heart size is normal for positioning and technique. Bones/joints: Age appropriate. XR/XR chest 1V portable [id number] IMPRESSION: Low lung volumes. Exam is otherwise normal.
--- NOTE | 2023-09-02 20:14 | ECG_ITS ---
Test Date: 2023-09-02 Pat Name: Jennifer Vallejo Department: Room: Gender: Female Etl Programmer: : 1990 Requested By: Tray Stark Order Number: [id number] Charissa MD: Sebastien Aguirre M.D. Measurements Intervals [place] Rate: 102 P: 66 SD: 155 QRS: 101 QRSD: 92 T: 17 QT: 327 QTc: 428 Interpretive Statements SINUS TACHYCARDIA RIGHT AXIS DEVIATION [QRS AXIS > 100] NONSPECIFIC T-WAVE ABNORMALITY Compared to ECG 07/10/2022 18:07:24 Right-axis deviation now present T-wave abnormality now present Sinus rhythm no longer present Sinus arrhythmia no longer present Electronically Signed On 09-03-2023 7:09:29 GLASS TUBE BENDER by Sebastien Aguirre M.D. [id number]
[2023-09-02 20:15] VITALS: BP 119/76; PULSE 111; RESP 16; TEMP 36.6; O2SAT 97
[2023-09-02 20:19] LABS: Basophils # 0.1 10^3/uL (0.0-0.1); Basophils % 0.9 %; Eosinophils # 0.3 10^3/uL (0.0-0.8); Eosinophils % 3.9 %; Hematocrit 41.4 % (36-47); Lymphocytes % 26.8 %; Mean Corpuscular HGB Conc 33.6 g/dL (30-55); Mean Corpuscular Hemoglobin 30.3 pg (27-33); Mean Corpuscular Volume 90.2 fl (85-98); Monocytes # 0.4 10^3/uL (0.2-0.9); Monocytes % 5.9 %; Neutrophils # 4.66 10^3/uL (1.8-7.7); Neutrophils % 62.2 %; Nucleated Red Blood Cells % 0 %; Platelet Count 287 10^3/cmm (157-399); Red Blood Count 4.59 10^6/uL (3.85-5.65); Red Cell Distribution Width 12.1 % (12.1-15.1); White Blood Count 7.49 10^3/uL (3.29-11.43)
--- NOTE | 2023-09-02 20:28 | ECG_ITS ---
[facility] Test Date: 2023-09-02 Pat Name: Jennifer Vallejo Department: Room: Gender: Female Manager Of Information: : 1990 Requested By: Laura Rosales Order Number: [id number] Charissa MD: Sebastien Aguirre M.D. Measurements Intervals [place] Rate: 80 P: 78 GA: 155 QRS: 98 QRSD: 91 T: 61 QT: 364 QTc: 420 Interpretive Statements SINUS RHYTHM BORDERLINE RIGHT AXIS DEVIATION [QRS AXIS > 90] Compared to ECG 09/02/2023 20:09:43 Sinus tachycardia no longer present T-wave abnormality no longer present Electronically Signed On 09-03-2023 7:09:21 HAND SUTURE WINDER by Sebastien Aguirre M.D. [id number]
[2023-09-02] MEDS: LORazepam 2 mg/mL INJ 10 mL MDV 1 MG IV (21:26)
--- NOTE | 2023-09-02 21:51 | ED_ITS ---
HPI - Anxiety 2 General: Chief Complaint: Anxiety Stated Complaint: CP/ Anxiety Time Seen by Provider: 09/02/23 20:21 History of Present Illness: 33-year-old female presents emergency ro om via EMS with acute chest pain and shortness of breath that started about an hour ago after having an agreement with her sister. Patient described pain as cramping sensation with severity of 7 out of 10 mostly across the chest. Denies any cough, coughing up blood or vomiting blood. Patient denies any history of coronary disease, hyperlipidemia, diabetes or blood clot. Denies any cough, coughing up blood or vomiting blood. No calf tenderness or leg swelling. Associated symptoms: Reports chest pain and palpitations; Deny chills, fever(s), headache(s), malaise, nausea or syncope Review of Systems 2 General: Reports: 10 or more systems reviewed and unremarkable except in HPI and below Const: Denies: fever(s), chills, body aches, change in appetite, change in weight, fatigue, malaise or night sweats Card: Reports: chest pain and palpitations; Denies: irregular heart rhythm, swelling of feet/ankles, lightheadedness, syncope, pre-syncope, dyspnea on exertion, orthopnea or leg pain with exertion Resp: Reports: dyspnea; Denies: productive cough, wheezing, stridor or pain on inspiration GI: Denies: abdominal pain or nausea Musc: Denies: neck pain, back pain, extremity pain, extremity swelling, joint pain, joint swelling, joint warmth, joint stiffness or limited range of motion Neuro: Denies: headache(s) or numbness in extremities Psych: Reports: anxiety and panic attacks; Denies: depression, mood swings, sleeping less, sleeping more, hopelessness, change in appetite, irritability, paranoia, memory loss, difficulty concentrating, auditory hallucinations or tactile hallucinations Endo: Denies: polyuria, polydipsia, tired all the time, cold intolerance, excessive sweating or hot flashes PFSH ED 2 PFSH: Medical History Depression No pertinent past medical history Social History Smoking and tobacco/nicotine status: current every day tobacco/nicotine user Substance/Drug Use: unknown Physical Exam 2 Const: COMMON NORMALS: no acute distress, average body habitus, patient oriented x3 and no limitations GENERAL APPEARANCE: cooperative and anxious; not in distress, not combative, not disheveled, not lethargic, not ill appearing, not frail appearing and not Limp noted NUTRITIONAL APPEARANCE: o bese ORIENTATION/CONSCIOUSNESS: not lethargic Eye: COMMON NORMALS: Equal, round and reactive pupils present, EOMs intact bilaterally, conjunctivae normal, no scleral icterus, no papilledema, normal visual eid by confrontation and fundi normal bilaterally CONJUNCTIVA: Yes conjunctivae normal PUPIL: Yes Equal, round and reactive pupils present D IRECT OPHTHALMOSCOPY: Yes no papilledema and Yes fundi normal bilaterally Neck/C-Spine: COMMON NORMALS: full ROM, no lymphadenopathy, supple, no meningeal signs, no JVD, Thyroid normal and No carotid bruits THYROID: T hyroid normal Lymph: LYMPHATIC: no lymphadenopathy noted Chest: COMMONS NORMALS: normal inspection of the chest, normal palpation of entire chest wall, normal inspection of the breasts and normal palpation of the breasts CHEST: Yes localized rib tenderness with anteroposterior compression, No Sternal flail present, No mass, Yes tenderness, No laceration, No Ecchymosis present, No wounds and No Surgical scars present (Chest) Breast/axilla inspection: Yes normal inspection of the breasts BREAST/AXILLA PALPATION: Yes normal palpation of the breasts Resp: COMMON NORMALS: normal respiratory effort, No retractions, No use of accessory muscles, clear to auscultation bilaterally and percussion normal A USCULTATION: clear to auscultation bilaterally PERCUSSION: percussion normal Cardio: COMMON NORMALS: no JVD Neuro: COMMON NORMALS: patient oriented x3 SENSORIUM/ORIENTATION: No lethargic MENINGEAL SIGNS: Yes no meningeal signs Course 2 Vital Signs: Vital signs: Vital Signs Temperature 97.8 F 09/02/23 22:40 Pulse Rate 70 09/02/23 22:40 Respiratory Rate 16 09/02/23 22:40 Blood Pressure 115/78 09/02/23 22:40 Pulse Oximetry 96 09/02/23 22:40 Oxygen Delivery Me thod Room Air 09/02/23 20:15 MDM - Anxiety Medical Decision Making Patient may come to emergency room had extensive workup with CBC, CMP, troponin, chest x-ray and EKG. Patient was given Ativan and upon reassessment patient appears to be comfortable heart rate improved significantly. Patient's chest pain was thoroughly reproducible. I did discuss patient with the . Differential Diagnosis Likely hyperventilation, panic disorder and acute anxiety Lab Data 09/02/23 19:34 09/02/23 21:19 Radiology Impressions Chest X-Ray 09/02/23 20:14 IMPRESSION: Low lung volumes. Exam is otherwise normal. Laboratory Results WBC 7.49 10^3/uL (3.29-11.43) 09/02/23 19:34 RBC 4.59 10^6/uL (3.85-5.65) 09/02/23 19:34 Hgb 13.90 g/dL (11.27-16.99) 09/02/23 19:34 Hct 41.4 % (36-47) 09/02/23 19:34 MCV 90.2 fl (85-98) 09/02/23 19:34 MCH 30.3 pg (27-33) 09/02/23 19:34 MCHC 33.6 g/dL (30-55) 09/02/23 19:34 RDW 12.1 % (12.1-15.1) 09/02/23 19:34 Plt Count 287 10^3/cmm (157-399) 09/02/23 19:34 MPV 11.0 fL (7.4-10.4) H 09/02/23 19:34 Neut % (Auto) 62.2 % 09/02/23 19:34 Lymph % (Auto) 26.8 % 09/02/23 19:34 [place] % (Auto) 5.9 % 09/02/23 19:34 Eos % (Auto) 3.9 % 09/02/23 19:34 Baso % (Auto) 0.9 % 09/02/23 19:34 Neut # (Auto) 4.66 10^3/uL (1.8-7.7) 09/02/23 19:34 Lymph # (Auto) 2.0 10^3/uL (0.8-4.8) 09/02/23 19:34 [place] # (Auto) 0.4 10^3/uL (0.2-0.9) 09/02/23 19:34 Eos # (Auto) 0.3 10^3/uL (0.0-0.8) 09/02/23 19:34 Baso # (Auto) 0.1 10^3/uL (0.0-0.1) 09/02/23 19:34 Nucleated RBC % (auto) 0 % 09/02/23 19:34 Nucleated RBCs # 0.0 /100WBC 09/02/23 19:34 Sodium 140 mmol/L (136-145) 09/02/23 21:19 Potassium 4.1 mmol/L (3.5-5.1) 09/02/23 21:19 Chloride 106 mmol/L (98-107) 09/02/23 21:19 Carbon Dioxide 23 mmol/L (22-29) 09/02/23 21:19 Anion Gap 15.1 (5-19) 09/02/23 21:19 BUN 13 mg/dL (6-20) 09/02/23 21:19 Creatinine 0.5 mg/dL (0.5-0.9) 09/02/23 21:19 GFR Calculation 142.1 mL/min (90-130) H 09/02/23 21:19 Glucose 70 mg/dL (65-115) 09/02/23 21:19 Calculated Osmolality 289 mOsm/kg (285-295) 09/02/23 21:19 Calcium 8.8 mg/dL (8.5-10.5) 09/02/23 21:19 Total Bilirubin 0.6 mg/dL (0.15-1.2) 09/02/23 21:19 AST 11 U/L (0-32) 09/02/23 21:19 ALT 12 U/L (0-33) 09/02/23 21:19 Alkaline Phosphatase 80 U/L (35-105) 09/02/23 21:19 Troponin T Baseline < 6 ng/L (0-10) 09/02/23 21:19 Total Protein 5.9 g/dL (6.6-8.7) L 09/02/23 21:19 Albumin 4.1 g/dL (3.5-5.2) 09/02/23 21:19 Globulin 1.8 g/dL (1.3-4.6) 09/02/23 21:19 XR interpretation done by ED provider, pending radiology final review EKG Data EKG 1: Ischemic changes: non-specific ST-T wave changes Interpretation: Chest X-Ray 09/02/23 20:14 IMPRESSION: Low lung volumes. Exam is otherwise normal. Other EKG comments: Chest X-Ray 09/02/23 20:14 IMPRESSION: Low lung volumes. Exam is otherwise normal. Discharge Plan Discharge Patient Disposition: Home Clinical Impression: Atypical chest pain, Anxiety Condition: Stable Prescriptions: No Action prednisone 20 mg tablet 20 mg PO DAILY 5 Days Qty: 5 0RF Discharge Orders: Discharge ED (Routine); Ordered 09/02/23 Ordered By: Laura Garcia Referrals: Orlando Bravo MD [Primary Care Provider] - Discharge Diet: Advance as tolerated Discharge Activity: Resume usual activity Patient Instructions: Opioid Safety, Pain Management Coding Level of Care Code ED Steam Gigger for Niko Brown
[2023-09-02 21:54] LABS: Troponin(5th) Baseline < 6 ng/L (0-10)
[2023-09-02 21:58] LABS: Alanine Aminotransferase 12 U/L (0-33); Albumin Level 4.1 g/dL (3.5-5.2); Alkaline Phosphatase 80 U/L (35-105); Anion Gap 15.1 (5-19); Aspartate Amino Transferase 11 U/L (0-32); Blood Urea Nitrogen 13 mg/dL (6-20); Calcium 8.8 mg/dL (8.5-10.5); Carbon Dioxide 23 mmol/L (22-29); Chloride 106 mmol/L (98-107); Globulin 1.8 g/dL (1.3-4.6); Glomerular Filtration Rate 142.1 mL/min (90-130); Glucose 70 mg/dL (65-115); Osmolality Calculated 289 mOsm/kg (285-295); Potassium 4.1 mmol/L (3.5-5.1); Sodium 140 mmol/L (136-145); Total Bilirubin 0.6 mg/dL (0.15-1.2); Total Protein 5.9 g/dL (6.6-8.7)
[2023-09-02 22:40] VITALS: BP 115/78; PULSE 70; RESP 16; TEMP 36.6; O2SAT 96
== END 2023-09-02 22:41 | disposition home or self-care (01) ==
PROVIDERS: Emergency Medicine; Emergency Provider Family Medicine; PCP Family Medicine
DX: R07.89 Other chest pain (principal); F41.9 Anxiety disorder, unspecified; Z72.0 Tobacco use
CPT/HCPCS: 36415; 71045; 80053; 84484; 85025; 93005; 96374; 99285; J2060

== ENCOUNTER 2024-07-06 13:03 | Emergency (ER) | payer BC, MEDICAID, SELFPAY ==
[2024-07-06] VITALS (9 sets, daily range): BP systolic 70–134; BP diastolic 45–87; PULSE 81–112; RESP 16–22; TEMP 36.8; O2SAT 90–100; BMI 43.5
[2024-07-06 14:04] LABS: ABG PCO2 35.2 mmHg (35-45); ABG PH Result 7.44 (7.35-7.45); Alveolar-Arterial Oxygen Gradi 1.4 mmHg (5-10); Arterial Blood Gas Hematocrit 39.2 % (37-47); Base Excess ABG 0.1 mmol/L (-2.0-2.0); Blood Gas Allen Test Pos; Blood Gas Operator Identificat WALCI; Blood Gas Sample Site Radial, right; Blood Gas Sample Type Arterial; Carboxyhemoglobin 2.2 %THgb (0.4-20.1); HCO3 ABG 23.9 mmol/L (22-26); HGB O2 Sat 95.5 % (95-100); Ionized Calcium Level - ABG 1.2 mmol/L (1.1-1.4); Oxygen Device ROOM AIR; Oxygen Saturation ABG 98.6; PO2 ABG 94.6 mmHg (80.0-100.0); PO2 FiO2 Ratio Arterial Blood 450; Potassium Level - ABG 3.9 mmol/L (3.5-5.0); Total Hemoglobin 12.8 g/dL (12-16)
--- NOTE | 2024-07-06 14:07 | CT_ITS ---
WS: [id number] CT ABDOMEN AND PELVIS NONCONTRAST HISTORY: Abdominal pain TECHNIQUE: Imaging performed through the abdomen and pelvis. Coronal and sagittal reformats are submi tted. All CT scans at [facility] use at least one of these dose optimization techniques: auto mated exposure control; mA and/or kV adjustment per patient size (includes targeted exams where dose is matched to clinical indication); or iterative reconstruction. DLP: 828.53 mGy.cm COMPARISON: 10/05/2018 Lower thorax: Lung bases are clear. Visualized heart is normal. No hiatal hernia. Liver: Normal size liver. No mass or bile duct dilatation. Gallbladder: Normal gallbladder. No pericholecystic fluid or cholelithiasis. No gallbladder wall thic kening. Pancreas: Normal size and attenuation. Normal pancreatic duct. No pancreatitis or mass. Spleen: Normal. Adrenal glands: Normal. No mass. Right kidney: Normal size kidney with no mass or hydronephrosis. Left kidney: Normal size kidney with no mass or hydronephrosis. Aorta: Normal abdominal aorta, no aneurysm or atherosclerosis. No free fluid, intraperitoneal air or significant lymphadenopathy. GI tract: Normal noncontrast imaging of the stomach, small bowel and colon. No obstruction or wall th ickening. Normal appendix. Abdominal wall: Negative. No hernia. Pelvis: Uterus is anteverted and slightly enlarged. No free fluid. Both ovaries are normal. Osseous structures: Unremarkable. CT/CT abdomen pelvis wo con [id number] IMPRESSION: 1. No acute abdominal or pelvic abnormalities. 2. Normal appendix. 3. No renal obstruction. 4. No GI tract obstruction.
[2024-07-06 14:31] LABS: Basophils % 0.5 %; Eosinophils # 0.2 10^3/uL (0.0-0.8); Eosinophils % 2.8 %; Hematocrit 39.9 % (36-47); Lymphocytes # 1.7 10^3/uL (0.8-4.8); Lymphocytes % 21.8 %; Mean Corpuscular HGB Conc 32.6 g/dL (30-55); Mean Corpuscular Hemoglobin 29.6 pg (27-33); Mean Corpuscular Volume 90.9 fl (85-98); Mean Platelet Volume 10.4 fL (7.4-10.4); Monocytes # 0.7 10^3/uL (0.2-0.9); Monocytes % 8.7 %; Neutrophils % 65.9 %; Nucleated Red Blood Cells % 0 %; Platelet Count 258 10^3/cmm (157-399); Red Blood Count 4.39 10^6/uL (3.85-5.65); Red Cell Distribution Width 12.6 % (12.1-15.1); White Blood Count 7.89 10^3/uL (3.29-11.43)
--- NOTE | 2024-07-06 14:34 | ED_ITS ---
HPI - Abdominal Pain 2 General: Chief Complaint: Abdominal Pain Stated Complaint: abd pain Time Seen by Provider: 07/06/24 13:54 History of Present Illness: 34-year-old female presents emergency ro om complaining of upper abdominal pain with numbness and tingling in her arms bilaterally as well. She is tachypneic when she first arrived. She complains of vomiting severe nausea and abdominal cramping. No dysuria urgency or frequency. She has not previously had any abdominal surgeries save a tubal ligation. She denies any medic easy melena hematemesis or coffee-ground emesis no fever. Associated Symptoms: Reports nausea and vomiting; Denies chills, dysuria and fever(s) Related Data Previous Rx's Medication Instructions Recorded lorazepam 2 mg tablet (Ativan) 2 mg buccal Q8H PRN nausea and 07/06/24 vomiting #14 tabs olanzapine 10 mg tablet 10 mg PO .Every 8 hours PRN nausea 07/06/24 and vomiting #15 tabs Allergies Allergy/AdvReac Type Severity Reaction Status Date / Time No Known Allergies Allergy Verified 03/22/24 13:50 Review of Systems 2 Const: Denies: fever(s) or chills Card: Denies: chest pain Resp: Denies: dyspnea GI: Reports: abdominal pain, nausea and vomiting : Denies: dysuria, urinary frequency or urinary urgency Musc: Denies: neck pain or back pain Skin/Breast: Denies: rash PFSH ED 2 PFSH: Medical History (Updated 07/06/24 @ 16:40 by Steven Godfrey DO) Cannabis use disorder Depression No pertinent past medical history Surgical History (Updated 07/06/24 @ 14:34 by Steven Godfrey DO) Hx of tubal ligation Social History Smoking and tobacco/nicotine status: current every day tobacco/nicotine user Substance/Drug Use: unknown Physical Exam 2 Const: COMMON NORMALS: no acute distress GENERAL APPEARANCE: cooperative and comfortable ORIENTATION/CONSCIOUSNESS: Yes awake, Yes oriented to person, Yes oriented to place and Yes oriented to time HENMT: COMMON NORMALS: normocephalic, atraumatic and hearing grossly normal bilaterally HEAD & SCALP: normocephalic and atraumatic Resp: COMMON NORMALS: normal respiratory effort, No retractions, No use of accessory muscles and clear to auscultation bilaterally AUSCULTATION: clear to auscultation bilaterally Cardio: COMMON NORMALS: regular rate, regular rhythm and No murmurs present (Cardio) RATE: regular rate RHYTHM: regular rhythm GI: COMMON NORMALS: No hepatosplenomegaly present AUSCULTATION: Yes normoactive bowel sounds PALPATION: Yes Tenderness to palpation present (GI) (Epigastric discomfort), No Guarding due to palpation present (GI) and Yes No hepatosplenomegaly present Extremity: COMMON NORMALS: normal to inspection, capillary refill normal, no clubbing, cyanosis or edema, no calf tenderness and no pedal edema Neuro: SENSORIUM/ORIENTATION: Yes oriented to person, Yes oriented to place and Yes oriented to time Skin: COMMON NORMALS: no rashes or lesions noted GENERAL SKIN EXAM: no rashes or lesions noted Course 2 Vital Signs: Vital signs: Vital Signs Temperature 98.2 F 07/06/24 13:06 Pulse Rate 85 07/06/24 16:10 Respiratory Rate 16 07/06/24 15:03 Blood Pressure 93/60 07/06/24 16:10 Pulse Oximetry 96 07/06/24 16:10 Oxygen Delivery Me thod Nasal Cannula 07/06/24 16:10 Oxygen Flow Rate 2 07/06/24 16:10 MDM - Abdominal Pain Medical Decision Making Significant improvement with Haldol and Ativan. CT and labs did not show any clinically significant abnormalities. At discharge patient no discussed marijuana use with your she does use fairly concentrated forms. Encouraged her to through abstain or use less concentrated forms will discharge her home with olanzapine and Ativan to use as needed. Medical Records I reviewed the patient's medical records. Lab Data I reviewed the patient's lab results. 07/06/24 14:17 07/06/24 14:17 Labs/Radiology: Radiology Impressions Abdomen/Pelvis CT 07/06/24 14:07 IMPRESSION: 1. No acute abdominal or pelvic abnormalities. 2. Normal appendix. 3. No renal obstruction. 4. No GI tract obstruction. Laboratory Results WBC 7.89 10^3/uL (3.29-11.43) 07/06/24 14:17 RBC 4.39 10^6/uL (3.85-5.65) 07/06/24 14:17 Hgb 13.00 g/dL (11.27-16.99) 07/06/24 14:17 Hct 39.9 % (36-47) 07/06/24 14:17 MCV 90.9 fl (85-98) 07/06/24 14:17 MCH 29.6 pg (27-33) 07/06/24 14:17 MCHC 32.6 g/dL (30-55) 07/06/24 14:17 RDW 12.6 % (12.1-15.1) 07/06/24 14:17 Plt Count 258 10^3/cmm (157-399) 07/06/24 14:17 MPV 10.4 fL (7.4-10.4) 07/06/24 14:17 Neut % (Auto) 65.9 % 07/06/24 14:17 Lymph % (Auto) 21.8 % 07/06/24 14:17 [place] % (Auto) 8.7 % 07/06/24 14:17 Eos % (Auto) 2.8 % 07/06/24 14:17 Baso % (Auto) 0.5 % 07/06/24 14:17 Neut # (Auto) 5.20 10^3/uL (1.8-7.7) 07/06/24 14:17 Lymph # (Auto) 1.7 10^3/uL (0.8-4.8) 07/06/24 14:17 [place] # (Auto) 0.7 10^3/uL (0.2-0.9) 07/06/24 14:17 Eos # (Auto) 0.2 10^3/uL (0.0-0.8) 07/06/24 14:17 Baso # (Auto) 0.0 10^3/uL (0.0-0.1) 07/06/24 14:17 Nucleated RBC % (auto) 0 % 07/06/24 14:17 Nucleated RBCs # 0.0 /100WBC 07/06/24 14:17 Specimen Type Arterial 07/06/24 13:53 Sample Site Radial, right 07/06/24 13:53 ABG pH 7.44 (7.35-7.45) 07/06/24 13:53 ABG pCO2 35.2 mmHg (35-45) 07/06/24 13:53 ABG pO2 94.6 mmHg (80.0-100.0) 07/06/24 13:53 ABG PO2/FiO2 Ratio 450 07/06/24 13:53 ABG HCO3 23.9 mmol/L (22-26) 07/06/24 13:53 ABG O2 Saturation 98.6 07/06/24 13:53 ABG Base Excess 0.1 mmol/L (-2.0-2.0) 07/06/24 13:53 [place] Test Pos 07/06/24 13:53 A-a O2 Gradient 1.4 mmHg (5-10) L 07/06/24 13:53 Hematocrit 39.2 % (37-47) 07/06/24 13:53 Hgb O2 Saturation 95.5 % (95-100) 07/06/24 13:53 Carboxyhemoglobin 2.2 %THgb (0.4-20.1) 07/06/24 13:53 Methemoglobin 1.0 % (0.4-1.5) 07/06/24 13:53 Total Hemoglobin 12.8 g/dL (12-16) 07/06/24 13:53 Sodium 141.0 mmol/L (131-143) 07/06/24 13:53 Potassium 3.9 mmol/L (3.5-5.0) 07/06/24 13:53 Glucose 90.0 mg/dL (70-115) 07/06/24 13:53 Ionized Calcium 1.2 mmol/L (1.1-1.4) 07/06/24 13:53 O2 Delivery Device Room air 07/06/24 13:53 FiO2 21.0 % 07/06/24 13:53 Compliance Analyst ID [place] 07/06/24 13:53 Sodium 137 mmol/L (136-145) 07/06/24 14:17 Potassium 4.0 mmol/L (3.5-5.1) 07/06/24 14:17 Chloride 103 mmol/L (98-107) 07/06/24 14:17 Carbon Dioxide 27 mmol/L (22-29) 07/06/24 14:17 Anion Gap 11.0 (5-19) 07/06/24 14:17 BUN 16 mg/dL (6-20) 07/06/24 14:17 Creatinine 0.8 mg/dL (0.5-0.9) 07/06/24 14:17 GFR Calculation 82.1 mL/min (90-130) L 07/06/24 14:17 Glucose 74 mg/dL (65-115) 07/06/24 14:17 Calculated Osmolality 284 mOsm/kg (285-295) L 07/06/24 14:17 Calcium 8.5 mg/dL (8.5-10.5) 07/06/24 14:17 Total Bilirubin 0.7 mg/dL (0.15-1.2) 07/06/24 14:17 AST 10 U/L (0-32) 07/06/24 14:17 ALT 13 U/L (0-33) 07/06/24 14:17 Alkaline Phosphatase 76 U/L (35-105) 07/06/24 14:17 Total Protein 6.4 g/dL (6.6-8.7) L 07/06/24 14:17 Albumin 4.0 g/dL (3.5-5.2) 07/06/24 14:17 Globulin 2.4 g/dL (1.3-4.6) 07/06/24 14:17 Lipase 20 U/L (13-60) 07/06/24 14:17 HCG, Qual Negative (Negative) 07/06/24 14:17 Urine Color Yellow (Yellow) 07/06/24 15:50 Urine Appearance Cloudy (CLEAR) A 07/06/24 15:50 Urine pH 8.5 (5-7) A 07/06/24 15:50 Ur Specific [place] 1.029 (1.005-1.030) 07/06/24 15:50 Urine Protein 1+ (Negative) A 07/06/24 15:50 Urine Glucose (UA) Negative (Normal) 07/06/24 15:50 Urine Ketones Negative (Negative) 07/06/24 15:50 Urine Blood Negative (Negative) 07/06/24 15:50 Urine Nitrate Negative (Negative) 07/06/24 15:50 Urine Bilirubin Negative (Negative) 07/06/24 15:50 Urine Urobilinogen 1.0 mg/dL (Negative) 07/06/24 15:50 Ur Leukocyte Esterase 1+ (Negative) A 07/06/24 15:50 Urine RBC 0-4 /hpf (0-2) H 07/06/24 15:50 Urine WBC 0-4 /hpf (0-5) H 07/06/24 15:50 Ur Squamous Epith Cells 10-15 /hpf (0-5) H 07/06/24 15:50 Ur Transition Epith Cell 0-4 /hpf 07/06/24 15:50 Amorphous Sediment Not Reportable 07/06/24 15:50 Urine Bacteria Trace /hpf (NONE) 07/06/24 15:50 Urine Mucus 1+ /hpf 07/06/24 15:50 All radiology interpretation(s) finalized by discharge Discharge Plan Discharge Patient Disposition: Home Clinical Impression: Cannabinoid hyperemesis syndrome Condition: Stable Prescriptions: New olanzapine 10 mg tablet 10 mg PO .Every 8 hours PRN (Reason: nausea and vomiting) Qty: 15 0RF lorazepam [Ativan] 2 mg tablet 2 mg buccal Q8H PRN (Reason: nausea and vomiting) Qty: 14 0RF Discharge Orders: Discharge ED (Routine); Ordered 07/06/24 Ordered By: Steven Godfrey Referrals: Orlando Bravo MD [Primary Care Provider] - Patient Instructions: Opioid Safety, Pain Management Activity Restrictions/Additional Instructions: Thank you for choosing [facility] for your healthcare needs today. It is very important that you follow up as instructed or that you return to the Emergency Department should you have concerns or if your condition changes or worsens in any way. You are seen in the emergency room with persistent abdominal pain cramping and nausea. You were given prescriptions for olanzapine and Ativan to use as needed. Suspect the abdominal cramping and discomfort is related to marijuana use encouraged to decrease use of concentrated products or abstain completely Coding Level of Care Code ED Surgical Endoscopist for Niko Brown
[2024-07-06 14:40] LABS: HCG, Serum Qual Negative (Negative)
[2024-07-06 14:48] LABS: Alanine Aminotransferase 13 U/L (0-33); Alkaline Phosphatase 76 U/L (35-105); Aspartate Amino Transferase 10 U/L (0-32); Blood Urea Nitrogen 16 mg/dL (6-20); Calcium 8.5 mg/dL (8.5-10.5); Carbon Dioxide 27 mmol/L (22-29); Chloride 103 mmol/L (98-107); Creatinine Clr Calc Pharmacy 114.5678; Globulin 2.4 g/dL (1.3-4.6); Glomerular Filtration Rate 82.1 mL/min (90-130); Glucose 74 mg/dL (65-115); Lipase 20 U/L (13-60); Osmolality Calculated 284 mOsm/kg (285-295); Sodium 137 mmol/L (136-145); Total Bilirubin 0.7 mg/dL (0.15-1.2); Total Protein 6.4 g/dL (6.6-8.7)
[2024-07-06] MEDS: morphine 4 mg/mL SDV 1 mL IVP (15:03)
[2024-07-06] MEDS: ondansetron 2 mg/ML SDV 2 mL 4 MG IVP (15:04)
[2024-07-06 16:03] LABS: Bilirubin Urine Negative (Negative); Blood Urine Negative (Negative); Glucose Urine UA Negative (Normal); Ketones Urine Negative (Negative); Leukocyte Esterase Urine 1+ (Negative); Nitrate Urine Negative (Negative); Protein Urine 1+ (Negative); Specific Gravity, Urine 1.029 (1.005-1.030); Urine Appearance Cloudy (CLEAR); Urine Color Yellow (Yellow); pH Urine 8.5 (5-7)
[2024-07-06] MEDS: haloperidol inj 5 mg/mL INJ 1 mL 2.5 MG IVP (16:08)
[2024-07-06] MEDS: LORazepam 2 mg/mL INJ 1 mL 1 MG IVP (16:08)
[2024-07-06 16:22] LABS: UA Manual Slide Review YES; UA Slide Review UA Slide Review Perf
[2024-07-06 16:25] LABS: Add Urine Microscopic? YES; Bacteria Urine TRACE /hpf; Mucus Urine 1+ /hpf; RBC Urine 0-4 /hpf (0-2); Transitional Epi Cells Urine 0-4 /hpf; WBC Urine 0-4 /hpf (0-5)
[2024-07-06 16:26] LABS: Add Urine Culture? No
== END 2024-07-06 17:22 | disposition home or self-care (01) ==
PROVIDERS: Emergency Provider Family Medicine; PCP Family Medicine
DX: R11.2 Nausea with vomiting, unspecified (principal)
CPT/HCPCS: 36415; 36600; 74176; 80051; 80053; 81001; 82330; 82805; 83690; 84703; 85025; 96374; 96375; 99285; J1630; J2060; J2270; J2405

== ENCOUNTER 2024-07-11 23:33 | Emergency (ER) | payer BC, MEDICAID, SELFPAY ==
--- NOTE | 2024-07-11 23:47 | USR_ITS ---
PROCEDURE INFORMATION: Exam: US Abdomen, Limited; Right Upper Quadrant Exam date and time: 07/11/2024 11:52 PM Age: 34 years old Clinical indication: Abdominal pain; Epigastric; Additional info: Epi/ruq pain TECHNIQUE: Imaging protocol: Real time ultrasound of the abdomen with image documentation. Limited exam focused on the right upper quadrant. COMPARISON: CT abdomen pelvis wo con [id number] 07/06/2024 3:04 PM FINDINGS: Liver: Echogenic. No masses. Gallbladder: Normal. No gallstones. There is no gallbladder wall thickening. Biliary ducts: Normal. No stones. No dilation. Pancreas: Visualized pancreas is unremarkable. Right kidney: Normal. No mass. No hydronephrosis. US/US gall bladder [id number] IMPRESSION: Fatty infiltration liver. No acute findings.
[2024-07-11 23:48] VITALS: BP 158/11; PULSE 100; RESP 24; TEMP 36.8; O2SAT 100; BMI 41.1
--- NOTE | 2024-07-11 23:48 | ED_ITS ---
HPI - Abdominal Pain 2 General: Chief Complaint: Abdominal Pain Stated Complaint: ABD Pain Time Seen by Provider: 07/11/24 23:37 Source: patient Mode of arrival: ambulatory Limitations: no limitations History of Present Illness: Patient is a 34-year-old female who presents to the emergency department for the second time in a week for continuing abdominal pain. She was seen here on 07/06 for the abdominal pain, had an unremarkable workup and was diagnosed with cannabinoid hyperemesis syndrome due to her use of marijuana. She was prescribed Ativan and olanzapine for her nausea, she is reporting that these have not improved her symptoms. She states that her pain is primarily epigastric and does radiate to the right upper quadrant. She states that it is newly started to radiate into her back. She does state that she still has her gallbladder. She is denying any fever, chills, hematemesis, bowel changes, or other symptoms. She is noting that she is having severe acid reflux that is making her feel short of breath. She notes that her pain in her stomach does seem to be worsened after eating. At this time she appears extremely anxious at bedside, is tearful, legs drawn up in pain. MD elicited complaint: abdominal pain Onset (ago): week(s) Pain Consistency: constant Location: Epigastric and RUQ Severity: severe Quality: cramping and burning Radiation: back Exacerbating factors: eating Relieving factors: nothing Associated Symptoms: Reports heartburn, nausea and vomiting; Denies bloating, change in stool character, chills, constipation, diarrhea, dysuria, fever(s), hematochezia and hematemesis Treatments prior to arrival: other (Lorazepam, olanzapine) Related Data Previous Rx's Medication Instructions Recorded lorazepam 2 mg tablet (Ativan) 2 mg buccal Q8H PRN nausea and 07/06/24 vomiting #14 tabs olanzapine 10 mg tablet 10 mg PO .Every 8 hours PRN nausea 07/06/24 and vomiting #15 tabs sucralfate 1 gram tablet (Carafate) 1 g PO BID #30 tabs 07/12/24 Allergies Allergy/AdvReac Type Severity Reaction Status Date / Time No Known Allergies Allergy Verified 07/11/24 23:52 Review of Systems 2 General: Reports: 10 or more systems reviewed and unremarkable except in HPI and below Const: Denies: fever(s), chills, change in appetite, change in weight or diaphoresis ENMT: Denies: throat pain or hoarseness Card: Denies: chest pain, palpitations or lightheadedness Resp: Reports: dyspnea; Denies: productive cough or wheezing GI: Reports: abdominal pain, nausea, vomiting and heartburn; Denies: hematemesis, diarrhea, constipation, bloating, change in stool character or hematochezia : Denies: flank pain, difficulty voiding, dysuria, urinary frequency or urinary urgency Musc: Reports: back pain; Denies: neck pain Skin/Breast: Denies: rash or new lesions Neuro: Denies: headache(s) or dizziness PFSH ED 2 PFSH: Medical History Cannabis use disorder Depression No pertinent past medical history Surgical History Hx of tubal ligation Social History Smoking and tobacco/nicotine status: current every day tobacco/nicotine user Substance/Drug Use: unknown Physical Exam 2 Const: COMMON NORMALS: patient oriented x3, no limitations, alert and well nourished GENERAL APPEARANCE: cooperative and anxious NUTRITIONAL APPEARANCE: obese ORIENTATION/CONSCIOUSNESS: Yes awake OTHER: Tearful, legs drawn up complaining of abdominal pain HENMT: COMMON NORMALS: normocephalic, atraumatic, hearing grossly normal bilaterally, external ears normal, Normal external nose present, Normal nasal mucous membranes and turbinates present and moist oral mucous membranes HEAD & SCALP: normocephalic and atraumatic NOSE: Normal external nose present and Normal nasal mucous membranes and turbinates present EXTERNAL EAR: Yes external ears normal Eye: COMMON NORMALS: Equal, round and reactive pupils present, EOMs intact bilaterally, conjunctivae normal and normal visual eid by confrontation C ONJUNCTIVA: Yes conjunctivae normal PUPIL: Yes Equal, round and reactive pupils present Neck/C-Spine: COMMON NORMALS: full ROM, supple, no meningeal signs and no JVD Resp: COMMON NORMALS: normal respiratory effort, No retractions, No use of accessory muscles and clear to auscultation bilaterally AUSCULTATION: clear to auscultation bilaterally, no crackles, no rales, no rhonchi and no wheezes Cardio: COMMON NORMALS: no JVD, regular rate, regular rhythm, S1 normal heart sound present, S2 normal heart sound present, No gallops present (Cardio), No clicks present (Cardio), No murmurs present (Cardio), No rub (Cardio) and Peripheral pulses 2+ throughout RATE: regular rate RHYTHM: regular rhythm HEART SOUNDS: S1 normal heart sound present and S2 normal heart sound present PERIPHERAL PULSES: Peripheral pulses 2+ throughout GI: COMMON NORMALS: Normal to inspection, nondistended, normoactive bowel sounds present, Soft to palpation, No hepatosplenomegaly present and no masses INSPECTION: Yes central obesity AUSCULTATION: Yes normoactive bowel sounds PALPATION: Yes Soft to palpation, No Guarding due to palpation present (GI), No Rigid due to palpation and Yes No hepatosplenomegaly present RECTAL EXAM: d eferred OTHER: Tenderness to palpation of epigastrium and right upper quadrant, negative Mercado sign : COMMON NORMALS: Yes no CVA tenderness BLADDER/KIDNEY EXAM: Yes no CVA tenderness Back/Pelvis: COMMON NORMALS: no CVA tenderness Extremity: COMMON NORMALS: normal to inspection and full ROM Neuro: COMMON NORMALS: patient oriented x3, moves all extremities, no focal motor deficits and no sensory deficits noted SENSORIUM/ORIENTATION: Yes alert MENINGEAL SIGNS: Yes no meningeal signs Skin: COMMON NORMALS: no rashes or lesions noted GENERAL SKIN EXAM: no rashes or lesions noted Course 2 Vital Signs: Vital signs: Vital Signs Temperature 98.3 F 07/11/24 23:48 Pulse Rate 100 07/11/24 23:48 Respiratory Rate 24 H 07/11/24 23:48 Blood Pressure 158/11 07/11/24 23:48 Pulse Oximetry 100 07/11/24 23:48 Oxygen Delivery Me thod Room Air 07/11/24 23:48 MDM - Abdominal Pain Medical Decision Making Patient was seen for the second time in a week for upper abdominal pain, with pain being in the right upper quadrant and extending to the back. Diagnosed with cannabinoid hyperemesis syndrome a week ago, she states that she has had recurrence of nausea vomiting but the pain has gotten worse. Her workup at that time was negative. She does arrive tearful and anxious at this time, EKG obtained did not show any abnormalities. Physical examination found her to be tender in epigastrium and right upper quadrant, though she had a negative Mercado sign. Her lab work today was all normal and unchanged from prior labs a week ago. Ultrasound of the right upper quadrant obtained did not show any signs of cholecystitis or cholelithiasis. She was rechecked after being given a GI cocktail, and notes quite a bit of improvement. With her negative workup 1 week after prior negative workup, and improvement after GI cocktail, this favors a gastroesophageal reflux disease and we will treat with cervical fate and other conservative measures such as not lying flat 2 to 3 hours after eating and avoiding any exacerbating foods. She is informed that if she has any persistence of pain despite pharmacotherapy, she needs to follow-up with general surgery to obtain an upper endoscopy for further assessment. She agrees with this plan and is ready to go home at this time, stating that her pain has pretty much subsided. Reasons to return discussed. Lab Data 07/11/24 23:53 07/11/24 23:53 Labs/Radiology: Laboratory Results WBC 10.38 10^3/uL (3.29-11.43) 07/11/24 23:53 RBC 4.15 10^6/uL (3.85-5.65) 07/11/24 23:53 Hgb 12.50 g/dL (11.27-16.99) 07/11/24 23:53 Hct 37.4 % (36-47) 07/11/24 23:53 MCV 90.1 fl (85-98) 07/11/24 23:53 MCH 30.1 pg (27-33) 07/11/24 23:53 MCHC 33.4 g/dL (30-55) 07/11/24 23:53 RDW 12.3 % (12.1-15.1) 07/11/24 23:53 Plt Count 263 10^3/cmm (157-399) 07/11/24 23:53 MPV 10.6 fL (7.4-10.4) H 07/11/24 23:53 Neut % (Auto) 56.1 % 07/11/24 23:53 Lymph % (Auto) 32.8 % 07/11/24 23:53 [place] % (Auto) 7.5 % 07/11/24 23:53 Eos % (Auto) 2.5 % 07/11/24 23:53 Baso % (Auto) 0.8 % 07/11/24 23:53 Neut # (Auto) 5.83 10^3/uL (1.8-7.7) 07/11/24 23:53 Lymph # (Auto) 3.4 10^3/uL (0.8-4.8) 07/11/24 23:53 [place] # (Auto) 0.8 10^3/uL (0.2-0.9) 07/11/24 23:53 Eos # (Auto) 0.3 10^3/uL (0.0-0.8) 07/11/24 23:53 Baso # (Auto) 0.1 10^3/uL (0.0-0.1) 07/11/24 23:53 Nucleated RBC % (auto) 0 % 07/11/24 23:53 Nucleated RBCs # 0.0 /100WBC 07/11/24 23:53 Sodium 136 mmol/L (136-145) 07/11/24 23:53 Potassium 4.5 mmol/L (3.5-5.1) 07/11/24 23:53 Chloride 103 mmol/L (98-107) 07/11/24 23:53 Carbon Dioxide 23 mmol/L (22-29) 07/11/24 23:53 Anion Gap 14.5 (5-19) 07/11/24 23:53 BUN 16 mg/dL (6-20) 07/11/24 23:53 Creatinine 0.6 mg/dL (0.5-0.9) 07/11/24 23:53 GFR Calculation 114.4 mL/min (90-130) 07/11/24 23:53 Glucose 104 mg/dL (65-115) 07/11/24 23:53 Calculated Osmolality 283 mOsm/kg (285-295) L 07/11/24 23:53 Calcium 8.4 mg/dL (8.5-10.5) L 07/11/24 23:53 Total Bilirubin 0.2 mg/dL (0.15-1.2) 07/11/24 23:53 AST 19 U/L (0-32) 07/11/24 23:53 ALT 12 U/L (0-33) 07/11/24 23:53 Alkaline Phosphatase 77 U/L (35-105) 07/11/24 23:53 Total Protein 6.3 g/dL (6.6-8.7) L 07/11/24 23:53 Albumin 3.8 g/dL (3.5-5.2) 07/11/24 23:53 Globulin 2.5 g/dL (1.3-4.6) 07/11/24 23:53 Lipase 30 U/L (13-60) 07/11/24 23:53 HCG, Qual Negative (Negative) 07/11/24 23:53 Urine Color Yellow (Yellow) 07/12/24 00:22 Urine Appearance Cloudy (CLEAR) A 07/12/24 00:22 Urine pH 8.0 (5-7) A 07/12/24 00:22 Ur Specific [place] 1.020 (1.005-1.030) 07/12/24 00:22 Urine Protein Negative (Negative) 07/12/24 00:22 Urine Glucose (UA) Negative (Normal) 07/12/24 00:22 Urine Ketones Negative (Negative) 07/12/24 00:22 Urine Blood Negative (Negative) 07/12/24 00:22 Urine Nitrate Negative (Negative) 07/12/24 00:22 Urine Bilirubin Negative (Negative) 07/12/24 00:22 Urine Urobilinogen 1.0 mg/dL (Negative) 07/12/24 00:22 Ur Leukocyte Esterase Negative (Negative) 07/12/24 00:22 Urine RBC 0-2 /hpf (0-2) 07/12/24 00:22 Urine WBC 0-5 /hpf (0-5) 07/12/24 00:22 Ur Squamous Epith Cells 0-5 /hpf (0-5) 07/12/24 00:22 Amorphous Sediment Not Reportable 07/12/24 00:22 Urine Bacteria None seen /hpf (NONE) 07/12/24 00:22 Hyaline Casts 0-4 /lpf H 07/12/24 00:22 All radiology interpretation(s) finalized by discharge Discharge Plan Discharge Patient Disposition: Home Clinical Impression: Gastroesophageal reflux disease Qualifiers: Esophagitis presence: esophagitis presence not specified Qualified Code(s): K 21.9 - Gastro-esophageal reflux disease without esophagitis Condition: Stable Prescriptions: New sucralfate [Carafate] 1 gram tablet 1 g PO BID Qty: 30 0RF No Action olanzapine 10 mg tablet 10 mg PO .Every 8 hours PRN (Reason: nausea and vomiting) Qty: 15 0RF lorazepam [Ativan] 2 mg tablet 2 mg buccal Q8H PRN (Reason: nausea and vomiting) Qty: 14 0RF Discharge Orders: Discharge ED (Routine); Ordered 07/12/24 Ordered By: Sai Huang Discharge Diet: As Directed Patient Instructions: Gastroesophageal Reflux in Infants (ED) Activity Restrictions/Additional Instructions: Take Carafate as prescribed. Avoid any acidic, spicy, or other potentially exacerbating foods that may make your pain worse. Avoid lying flat 2 to 3 hours after eating. Drink plenty of fluids. Continue taking your other prescribed medications. Follow-up with general surgery if you continue to have worsening pain as you may require an upper endoscopy. Return with any new or concerning symptoms. Coding Level of Care Code ED Director [employer] for Niko Brown
[2024-07-11] MEDS: ketorolac 30 mg/mL INJ IVP (23:54)
[2024-07-11] MEDS: lidocaine 2% viscous 15 ML, aluminum-mag hydrox-simethicon 30 ML, sucralfate oral liq 1 GM PO (23:55)
[2024-07-11 23:56] LABS: Basophils # 0.1 10^3/uL (0.0-0.1); Basophils % 0.8 %; Eosinophils # 0.3 10^3/uL (0.0-0.8); Eosinophils % 2.5 %; Hematocrit 37.4 % (36-47); Lymphocytes # 3.4 10^3/uL (0.8-4.8); Lymphocytes % 32.8 %; Mean Corpuscular HGB Conc 33.4 g/dL (30-55); Mean Corpuscular Hemoglobin 30.1 pg (27-33); Mean Corpuscular Volume 90.1 fl (85-98); Mean Platelet Volume 10.6 fL (7.4-10.4); Monocytes # 0.8 10^3/uL (0.2-0.9); Monocytes % 7.5 %; Neutrophils # 5.83 10^3/uL (1.8-7.7); Neutrophils % 56.1 %; Nucleated Red Blood Cells % 0 %; Platelet Count 263 10^3/cmm (157-399); Red Blood Count 4.15 10^6/uL (3.85-5.65); Red Cell Distribution Width 12.3 % (12.1-15.1); White Blood Count 10.38 10^3/uL (3.29-11.43)
[2024-07-12 00:13] LABS: Albumin Level 3.8 g/dL (3.5-5.2); Alkaline Phosphatase 77 U/L (35-105); Blood Urea Nitrogen 16 mg/dL (6-20); Calcium 8.4 mg/dL (8.5-10.5); Carbon Dioxide 23 mmol/L (22-29); Chloride 103 mmol/L (98-107); Creatinine Clr Calc Pharmacy 147.8374; Globulin 2.5 g/dL (1.3-4.6); Glomerular Filtration Rate 114.4 mL/min (90-130); Glucose 104 mg/dL (65-115); Lipase 30 U/L (13-60); Osmolality Calculated 283 mOsm/kg (285-295); Sodium 136 mmol/L (136-145); Total Bilirubin 0.2 mg/dL (0.15-1.2); Total Protein 6.3 g/dL (6.6-8.7)
[2024-07-12 00:14] LABS: Alanine Aminotransferase 12 U/L (0-33); Anion Gap 14.5 (5-19); Aspartate Amino Transferase 19 U/L (0-32); Potassium 4.5 mmol/L (3.5-5.1)
[2024-07-12 00:15] LABS: HCG, Serum Qual Negative (Negative)
[2024-07-12 00:21] VITALS: BP 117/57; PULSE 86; O2SAT 100
--- NOTE | 2024-07-12 00:32 | ECG_ITS ---
[facility]24[facility]11 Pat Name: Jennifer Vallejo Department: Room: Gender: Female Driver Service Technician: : 1990 Requested By: Sai Reddy Order Number: [id number] Charissa MD: JE SPENCER Measurements Intervals [place] Rate: 93 P: 73 PA: 153 QRS: 96 QRSD: 93 T: 61 QT: 336 QTc: 420 Interpretive Statements SINUS RHYTHM WITH SINUS ARRHYTHMIA BORDERLINE RIGHT AXIS DEVIATION [QRS AXIS > 90] Compared to ECG 09/02/2023 21:02:34 No significant changes Electronically Signed On 07-15-2024 00:40:35 INVENTORY AUDITOR by JE SPENCER [email or web address]
[2024-07-12 00:34] LABS: Bilirubin Urine Negative (Negative); Blood Urine Negative (Negative); Glucose Urine UA Negative (Normal); Ketones Urine Negative (Negative); Leukocyte Esterase Urine Negative (Negative); Nitrate Urine Negative (Negative); Protein Urine Negative (Negative); Urine Appearance Cloudy (CLEAR); Urine Color Yellow (Yellow)
[2024-07-12 00:39] LABS: Add Urine Microscopic? YES; Bacteria Urine None Seen /hpf; Hyaline Casts Urine 0-4 /lpf; RBC Urine 0-2 /hpf (0-2); Squamous Epithelial Cell Urine 0-5 /hpf (0-5); WBC Urine 0-5 /hpf (0-5)
[2024-07-12 01:03] VITALS: BP 127/83; PULSE 76; O2SAT 99
== END 2024-07-12 01:05 | disposition home or self-care (01) ==
PROVIDERS: Emergency Provider Physician Assistant
DX: K21.9 Gastro-esophageal reflux disease without esophagitis (principal); Z72.0 Tobacco use
CPT/HCPCS: 76705; 80053; 81001; 83690; 84703; 85025; 93005; 96374; 99285; J1885